=== PATIENT | male | born 1970 | race Caucasian/White ===

== ENCOUNTER → 2025-02-11 08:02 | Outpatient (BNVA) | payer OTHER, SELFPAY | PROVIDERS: Visit Provider Surgery | DX: Z12.11 Encounter for screening for malignant neoplasm of colon (principal) | CPT/HCPCS: 99204 ==

== ENCOUNTER 2025-03-05 09:55 | Day surgery (SDC) | payer OTHER, SELFPAY ==
[2025-03-05 10:13] VITALS: BP 150/97; PULSE 94; RESP 18; TEMP 36.7; O2SAT 99; BMI 19.8
[2025-03-05] MEDS: sodium chloride 0.9% 500 ML 30 ML IV (10:22)
--- NOTE | 2025-03-05 10:47 | ANES.PREANE2 ---
Pre-Anesthetic Assessment Height/Weight: Height 5 ft 10 in Weight 138 lb Temp Pulse Resp BP Pulse Ox O2 Del Method 98.1 F 94 18 150/97 99 Room Air 03/05/25 10:13 03/05/25 10:13 03/05/25 10:13 03/05/25 10:13 03/05/25 10:13 03/05/25 10:13 Preop Diagnosis: Screening colonoscopy Operation Date: 03/05/25 11:55 Proposed Procedures p Colonoscopy [id number] G0105 Z12.11(Not Applicable) - Monster Carpenter MD Was Beta Hilario taken within 24 hours: N/A Was Clonidine taken within 24 hours: N/A Last intake: Intake Last Liquid Date 03/04/25 Last Liquid Time 20:30 Last Solid Date 03/03/25 Last Solid Time 19:30 Social Tobacco and No alcohol Exam alert, oriented x 3, clear to auscultation bilaterally and regular rate & rhythm Airway Submandibular: within normal limits Cervical ROM: within normal limits Mallampati: Class III Comments: Comments: Edentulous Anesthetic Plan ASA status: 2 Anesthesia: MAC Other: No prior issues with anesthesia Completed bowel prep History of COPD, smoker Denies any cardiac issues. Preop BP 150/97 METs greater than 4 Plan for MAC anesthesia Medications/Allergies Home Medications ?Medication ?Instructions ?Recorded ?Confirmed ?Last Taken ?Type albuterol-budesonide 1 - 2 inh inhalation DAILY PRN 02/11/25 03/05/25 03/03/25 History Shortness Of Breath Or Wheezing gabapentin 300 mg PO 3XD PRN Pain 02/11/25 03/05/25 03/03/25 History ibuprofen 800 mg tablet 800 mg PO Q8H 02/11/25 03/05/25 03/03/25 History ondansetron 8 mg disintegrating 8 mg PO Q8H PRN nausea and 02/14/25 03/05/25 03/03/25 Rx tablet vomiting #3 tabs cholecalciferol (vitamin D3) 25 25 mcg PO DAILY 03/05/25 03/05/25 03/03/25 History mcg (1,000 unit) capsule (Vitamin D3) fluticasone 250 mcg-salmeterol 50 1 inh inhalation BID 03/05/25 03/05/25 03/03/25 History mcg/dose blistr powdr for inhalation multivitamin 1 cap PO 1XD 03/05/25 03/05/25 03/03/25 History Allergies Allergy/AdvReac Type Severity Reaction Status Date / Time No Known Allergies Allergy Verified 03/05/25 10:06 Current Medications Generic Name Dose Route Start Last Admin Trade Name Freq PRN Reason Stop Dose Admin Sodium Chloride 500 mls @ 30 mls/hr 03/05/25 10:20 03/05/25 10:22 Sodium Chloride 0.9% IV 03/06/25 02:59 30 mls/hr .[id number] JOAN Administration PFSH Anesthesia Social History Smoking and tobacco/nicotine status: current every day tobacco/nicotine user (1 1/2- 2 PPD) Data Anesthesia Cardiac Studies: No Data to Display
--- NOTE | 2025-03-05 11:16 | W.PM.OPSUD ---
Surgery/Procedure H&P Update DATE OF PROCEDURE: March 05, 2025 DATE H&P PERFORMED: 02/11/25 H&P UPDATE INFORMATION: I have reviewed H&P completed within last 30 days, I have examined patient prior to procedure, No changes to prior documentation, Changes to prior documentation as noted here and Risks and benefits of the procedure reviewed PREOP DIAGNOSIS: Screening colonoscopy PLANNED PROCEDURE: Operation Date: 03/05/25 11:55 Proposed Procedures p Colonoscopy [id number] G0105 Z12.11(Not Applicable) - Monster Carpenter MD
[2025-03-05 11:36] VITALS: BP 92/64; PULSE 90; RESP 14; TEMP 36.7; O2SAT 96
[2025-03-05 11:40] VITALS: BP 93/66; PULSE 88; RESP 16; O2SAT 98
[2025-03-05 11:50] VITALS: BP 122/93; PULSE 83; RESP 18; O2SAT 98
--- NOTE | 2025-03-05 12:16 | ANE.PACU2 ---
Inpatient post-anesthesia follow up: Airway intact: Yes Vital signs: Temperature 98.0 F Pulse Rate 83 Respiratory Rate 18 Blood Pressure 122/93 Pulse Oximetry 98 Oxygen Delivery Me thod Room Air Oxygen Flow Rate Fraction of Inspir ed Oxygen Hydration adequate: Yes Nausea and vomiting: No Pain level: 1 Mental status: Baseline
== END 2025-03-05 12:16 | disposition home or self-care (01) ==
PROVIDERS: PCP Nurse Practitioner; Visit Provider Surgery
PROC: 0DJD8ZZ Inspection of Lower Intestinal Tract, Via Natural or Artificial Opening Endoscopic (ICD-10-PCS; CPT 45378; principal; 2025-03-05 11:55)
DX: Z12.11 Encounter for screening for malignant neoplasm of colon (principal); K52.9 Noninfective gastroenteritis and colitis, unspecified; D12.4 Benign neoplasm of descending colon; J44.9 Chronic obstructive pulmonary disease, unspecified; F17.210 Nicotine dependence, cigarettes, uncomplicated; Z79.899 Other long term (current) drug therapy
CPT/HCPCS: 45380; 45385; 88305; J2704; J3010; J7040

== ENCOUNTER → 2025-03-25 10:31 | Outpatient (BNVA) | payer OTHER, SELFPAY | PROVIDERS: PCP Nurse Practitioner; Visit Provider Surgery | DX: Z09 Encounter for follow-up examination after completed treatment for conditions other than malignant neoplasm (principal) | CPT/HCPCS: 99213 ==

== ENCOUNTER 2025-06-27 10:29 | Inpatient (IN) | payer OTHER, SELFPAY ==
--- OUTSIDE RECORDS SUMMARY | 2024-10-08 10:00 | XMS_ITS | Encounter Summary ---
Author Name [facility] Organization [facility] [place] Address [address] [place] [address] Care Team Providers Care Talent Development Manager Name Role Phone ROME DENSON Primary Care Provider Unavail able Selected Encounter This section includes the information on record at [place] for the Encounter. Date/Time Encounter Type Encounter Description Reason Provider Source Oct 08, 2024 03:00 PM Outpatient Encounter PRIMARY CARE/MEDICINE ICD-10-CM Z00.00 Encntr for general adult medical exam w/o abnormal findings [facility] DENSON Fareed Encounter Template Text not used by [place] Assessments - Encounter Diagnoses This section includes the primary and secondary diagnoses documented for the Encounter. Date/Time Primary/Secondary Diagnosis Diagnosis Name Provider Source Oct 13, 2024 07:46 PM PRIMARY Encntr for general adult medical exam w/o abnormal findings [facility] Oct 13, 2024 07:46 PM SECONDARY Alcohol dependence with alcohol-induced anxiety disorder [facility] DEN[facility] Oct 13, 2024 07:46 PM SECONDARY Chronic obstructive pulmonary disease, unspecified [facility] DENSON [facility] Oct 13, 2024 07:46 PM SECONDARY Oth disrd of bone density and structure, unspecified site HUGO DENSON [facility] Oct 13, 2024 07:46 PM SECONDARY Primary osteoarthritis, unspecified site HUGO DENSON [facility] Plan of Treatment: Future Appointments (+ 6 months) and Future Tests (+/- 45 days) The Plan of Treatment section includes future care activities for the patient from all [place] [facility]. This section includes future appointments and future orders which are active, pending or scheduled. Future Appointments This section includes appointments that were scheduled to occur 6 months from the date of the Encounter, up to a maximum of 20 appointments. The data comes from all [place] treatment facilities. Appointment Date/Time Appointment Type Appointme nt Facility Name Feb 11, 2025 08:00 AM AMBULATORY - MEDICINE [place] [facility] Lab Results: +/- 30 days of the encounter This section includes the Chemistry and Hematology Lab Results on record with [place] for the patient. Radiology Reports and Pathology Reports are provided separately, in subsequent sections. Lab Results This section contains the Chemistry/Hematology Results that were resulted 30 days before or 30 daysafter the date of the Encounter. Date/Time Source Result Type Result - Unit Interpretation Reference Range Specimen Type Comment Oct 08, 2024 03:49 PM [facility] TSH ([place]-PB) SERUM Specimen Type: SERUM No comment entered. Ordering Provider: ROME DENSON Report Released Date/Time: Sep 19, 2024 10:51 AM Reporting Lab: [place] [facility] [address] [place] [address] Performing Lab: [place] [facility] [address] [place] [address] TSH 2.811 u[IU]/mL 0.47-5 Oct 08, 2024 03:49 PM [facility] HGA1C BLOOD Specimen Type: BLOOD No comment entered. Ordering Provider: ROME DENSON Report Released Date/Time: Sep 19, 2024 10:51 AM Reporting Lab: [place] [facility] [address] [place] [address] Performing Lab: [place] [facility] [address] [place] [address] HGA1C 5.5 4.0-6.0 Oct 08, 2024 03:49 PM [facility] CHOLESTEROL PANEL (PB) PLASMA Specimen Type: P LASMA No comment entered. Ordering Provider: ROME DENSON Report Released Date/Time: Sep 19, 2024 10:51 AM Reporting Lab: [place] [facility] [address] [place] [address] Performing Lab: [place] [facility] [address] [place] [address] CHOLESTEROL 185 mg/dL 0-200 TRIGLYCERIDE 49 mg/dL 0-150 CALCULATED LDL 68.2 mg/dL HDL(New) 107.0 mg/dL H >40 HDL % OF TOTAL CHOLESTEROL (PB) 57.8 >25 Oct 08, 2024 03:49 PM [facility] VITAMIN D, 25-HYDROXY SERUM Specimen Type: SE RUM No comment entered. Ordering Provider: ROME DENSON Report Released Date/Time: Sep 19, 2024 10:51 AM Reporting Lab: [place] [facility] [address] [place] [address] Performing Lab: [place] [facility] [address] [place] [address] VITAMIN D, 25-HYDROXY 49.0 ng/mL 30-96 Oct 08, 2024 03:49 PM [facility] COMPREHENSIVE METABOLIC PANEL PLASMA Specimen Type: PLASMA No comment entered. Ordering Provider: ROME DENSON Report Released Date/Time: Sep 19, 2024 10:51 AM Reporting Lab: [place] [facility] [address] [place] [address] Performing Lab: [place] [facility] [address] [place] [address] CREATININE 0.75 mg/dL 0.7-1.3 UREA NITROGEN 6 mg/dL L 9-25 GLUCOSE 96 mg/dL 72-99 SODIUM 130 meq/L L 136-145 POTASSIUM 4.9 meq/L 3.5-5 CHLORIDE 96 meq/L L 98-107 CARBON DIOXIDE 24 meq/L 22-31 CALCIUM 9.3 mg/dL 8.4-10.4 PROTEIN 8.4 g/dL 6-8.6 ALBUMIN 4.3 g/dL 3.4-5 TOTAL BILIRUBIN 0.5 mg/dL 0.2-1.2 ALKALINE PHOSPHATASE 78 U/L 40-150 AST/SGOT 99 U/L H 5-34 ALT/SGPT 72 U/L H 8-40 EGFR (CKD-EPI 2020) 107 Oct 08, 2024 03:49 PM [facility] URINALYSIS ([facility]-PB) URINE Specimen Type: URIN E No comment entered. Ordering Provider: ROME DENSON Report Released Date/Time: Sep 19, 2024 10:51 AM Reporting Lab: [place] [facility] [address] [place] [address] Performing Lab: [place] [facility] [address] [facility] [place] [id number] URINE COLOR Light Yellow Yellow U.BILIRUBIN NEGATIVE mg/dL Negative U.PH 7.0 5.0-8.0 APPEARANCE CLEAR Clear U.NITRITE NEGATIVE mg/dL Negative URN.GLUCOSE NORMAL mg/dL Negative URN.PROTEIN NEGATIVE mg/dL URN.UROBILINOGEN NORMAL mg/dL Normal URN.BLOOD NEGATIVE mg/dL Negative-Trace URN.KETONES NEGATIVE mg/dL Negative-Trac e URN.LEUK.EST. NEGATIVE Negative-Trace URN.SPECIFIC GRAVITY 1.010 1.005-1.029 Oct 08, 2024 03:49 PM [facility] CBC BLOOD Specimen Type: BLOOD No comment entered. Ordering Provider: ROME DENSON Report Released Date/Time: Sep 19, 2024 10:51 AM Reporting Lab: [place] [facility] [address] [facility] [place] [address] Performing Lab: [place] [facility] [address] [facility] [place] [address] WBC 6.4 10*3/uL 3.6-11.2 RBC 4.39 10*6/uL 4.10-5.70 HGB 14.7 g/dL 13.1-16.8 HCT 44.3 38.2-48.4 MCV 100.9 fL H 80.0-100.0 MCH 33.5 pg 27.0-34.0 MCHC 33.2 g/dL 33.0-36.0 PLT 261 10*3/uL 150-400 MPV 10.7 fL 7.5-11.2 RDW 12.1 11.8-15.1 LYMPHOCYTES, AUTO % 37.6 MONOCYTES, AUTO % 12.9 NEUTROPHILS, AUTO % 46.5 EOSINOPHILS, AUTO % 2.2 BASOPHILS, AUTO % 0.5 LYMPHOCYTES, ABSOLUTE 2.41 10*3/uL 0.77- 4.50 MONOCYTES, ABSOLUTE 0.83 10*3/uL H 0.19-0. 8 NEUTROPHILS, ABSOLUTE 2.98 10*3/uL 2.10- 8.00 EOSINOPHILS, ABSOLUTE 0.14 10*3/uL 0.00- 0.60 BASOPHILS, ABSOLUTE 0.03 10*3/uL 0.00-0. 20 IMMATURE GRANS, AUTO % 0.3 IMMATURE GRANS, AUTO ABS 0.02 10*3/uL 0. 00-0.05 Vital Signs: All taken on the encounter date This section contains inpatient and outpatient Vital Signs collected on the date of the Encounter. Date/Time Temperature Pulse Blood Pressure Respiratory Rate SP02 Pain Height Weight Body Mass Index Source Oct 08, 2024 03:18 PM 97.8 84 135/[address] [facility] Social History: Smoking Status (Most current) and Tobacco Use (All prior to encounter date) This section includes the most current, and the historical, smoking and tobacco- related health factors from the [place] facility where the Encounter took place. Current Smoking Status This section includes the most current smoking, or tobacco-related health factor, from the [place] facility where the Encounter took place. Date/Time Current Smoking Status Comment Facil ity Oct 08, 2024 03:00 PM VA-TOBACCO USE EVERY DAY CIGARET [facility] Tobacco Use History This section includes a history of the smoking, or tobacco-related health factors, that were collected on or before the date of the Encounter. The data comes from the [place] facility where the Encounter took place. Date/Time Smoking Status/Tobacco Use Comment F acility Oct 08, 2024 03:00 PM VA-TOBACCO USE EVERY DAY CIGARET [facility] Sep 14, 2022 02:00 PM VA-TOBACCO USE 30 YEARS OR MORE [place] [facility] Sep 14, 2022 02:00 PM VA-TOBACCO USE ADVICE [facility] Sep 14, 2022 02:00 PM VA-TOBACCO USE HAMMER HEATER NO [facility] Sep 14, 2022 02:00 PM VA-TOBACCO USE MED NO [facility] Sep 14, 2022 02:00 PM [facility]TO[facility]ACCO USE [place] [facility] Sep 14, 2022 02:00 PM [facility] Aug 31, 2021 01:00 PM VA-TOBACCO USE 30 YEARS OR MORE [facility] Aug 31, 2021 01:00 PM VA-TOBACCO USE ADVICE [facility] Aug 31, 2021 01:00 PM VA-TOBACCO USE HAMMER [place] NO [facility] Aug 31, 2021 01:00 PM VA-TOBACCO USE MED NO [place] [facility] Aug 31, 2021 01:00 PM VA-TOBACCO USE WI 30 MIN OF WAKE UP [facility] Aug 31, 2021 01:00 PM VA-TOBACCO USER EVERY DAY [facility] Nov 11, 2019 11:24 AM VA-TOBACCO USE 30 YEARS OR MORE [place] Nov 11, 2019 11:24 AM VA-TOBACCO USE ADVICE [place] [place] Nov 11, 2019 11:24 AM VA-TOBACCO USE HAMMER HEATER NO [place] [facility] Nov 11, 2019 11:24 AM VA-TOBACCO USE MED NO [place] [facility] Nov 11, 2019 11:24 AM VA-TOBACCO USE WI 30 MIN OF WAKE UP [facility] Nov 11, 2019 11:24 AM VA-TOBACCO USER EVERY DAY [place] [facility] 2018 09:34 AM VA-TOBACCO USE 5 TO 15 YEARS [place] [place] 2018 09:34 AM VA-TOBACCO USE ADVICE [facility] 2018 09:34 AM VA-TOBACCO USE H[place]MER [place] NO [place] [facility] 2018 09:34 AM VA-TOBACCO USE MED NO [facility] 2018 09:34 AM VA-TOBACCO USE WI 30 MIN OF WAKE UP [facility] [place] [facility] 2018 09:34 AM VA-TOBACCO USER EVERY DAY [place] Jul 19, 2012 12:44 PM CURRENT TOBACCO USER [facility] Jul 19, 2012 12:44 PM TOBACCO OFFERED STOP SMOKING CLI CITLALI [facility] Radiology Reports: +/- 30 days of the encounter Radiology Reports For cases when an order for radiology services may have been completed prior to the date of the Encounter, the report list includes the Radiology Reports that were completed up to 30 days before dateof the Encounter. For cases when an order for radiology services may have been completed after the date of the Encounter, the report list also includes the Radiology Reports that were completed up to30 days after date of the Encounter. The data comes from all [place] treatment facilities. Date/Time Radiology Report Provider Source Oct 08, 2024 03:55 PM CHEST X-RAY, 2 VIE WS: BERLIN BLACKWOOD [id number] -[id number] M Exm Date: OCT 08, 2024@15:55 Req Phys: ROME DENSON Loc: PB-ABBEY PACT [facility] (Req Img Loc: PB-XRAY [place] Service: [place] [address] (Case [id number] COMPLETE) CHEST X-RAY, 2 VIEWS (RAD Detailed) CPT:91017 Reason for Study: COPD Clinical History: did not return for repeat chest xray Report Status: Verified Date Reported: OCT 09, 2024 Date Verified: OCT 09, 2024 [employer] E-Sig: Report: PA and lateral views of the chest with nipple markers reveal densities compatible with normal nipples adjacent to the nipple markers. There is moderate bilateral pulmonary hyperaeration. There is no infiltrate or effusion. Heart size is normal. Impression: No acute process Primary Interpreting Staff: CAMILA LEONARDO, RADIOLOGIST ([employer], no e-sig) /CAMILA Costello [facility] Encounter Notes: All associated encounter notes This section contains the clinical notes associated to the Encounter. Date/Time Encounter Note(s) Provider Source Oct 18, 2024 09:00 AM TELEPHONE ENCOUNTE R NOTE: LOCAL TITLE: TELEPHONE NOTE STANDARD TITLE: TELEPHONE ENCOUNTER NOTE DATE OF NOTE: OCT 18, 2024@09:00 ENTRY DATE: OCT 18, 2024@09:00:57 AUTHOR: AVERY GONCALVES EXP COSIGNER: URGENCY: STATUS: COMPLETED Attempted to contact to review test result letter. NO answer. Left . /eris/ Avery Goncalves RN [place] [facility], [facility] Signed: 10/18/2024 09:01 AVERY GONCALVES [facility] Oct 13, 2024 07:46 PM PHYSICIAN LETTERS: LOCAL TITLE: TEST RESULT GENERAL LETTER STL STANDARD TITLE: PHYSICIAN LETTERS DATE OF NOTE: OCT 13, 2024@19:46 ENTRY DATE: OCT 13, 2024@19:46:49 AUTHOR: ROME DENSON EXP COSIGNER: URGENCY: STATUS: COMPLETED [facility] [address] [place] [address] OCT 13, 2024 BERLIN BLACKWOOD [address] [address] Dear Berlin Blackwood, I would like to update you on your recent test results. LIPID PROFILE - High cholesterol and triglycerides (lipids) are risk factors for heart disease. Your cholesterol should fall between 140 and 200, and your triglycerides levels should be less than or equal to 150. HDL is the good cholesterol and should ideally be greater than 40. LDL is the bad cholesterol and optimal levels should be less than 100 (near optimal is between 100 and 129). TRIGLYCERIDE 49 mg/dL 10/08/2024 15:49 CHOLESTEROL 185 mg/dL 10/08/2024 15:49 HDL(New) 107.0 H mg/dL 10/08/2024 15:49 CALCULATED LDL 68.2 mg/dL 10/08/2024 15:49 HDL % OF TOTAL CHOLESTEROL (PB) 57.8 % 10/08/2024 15:49 No DIRECT LDL EO data found These readings are within normal limits. GLUCOSE - Your blood sugar or glucose level result GLUCOSE GLUCOSE 96 mg/dL 10/08/2024 15:49 These readings are within normal limits. HEMOGLOBIN A1C - Gives us information about your diabetes (sugar or glucose) control over the past 3 months. Your target is to keep your A1C below 6 %. HGA1C 5.5 % 10/08/2024 15:49 These readings are within normal limits. CBC - A complete blood count (CBC) gives important information about the kinds and numbers of cells in the blood, especially red blood cells, white blood cells, and platelets. HGB 14.7 g/dL 10/08/2024 15:49 HEMATOCRIT 44.3 % (10/08/24 15:49) PLT 261 10*3/uL 10/08/2024 15:49 WHITE BLOOD COUNT 6.4 10*3/uL (10/08/24 15:49) These readings are within normal limits. CHEM 7 - This is important information about the current status of your kidneys, liver, and electrolyte and acid/base balance as well as of your blood sugar and blood proteins. SODIUM 130 L mEq/L 10/08/2024 15:49 POTASSIUM 4.9 mEq/L 10/08/2024 15:49 CHLORIDE 96 L mEq/L 10/08/2024 15:49 UREA NITROGEN 6 L mg/dL 10/08/2024 15:49 CREATININE 0.75 mg/dL 10/08/2024 15:49 CALCIUM 9.3 mg/dL 10/08/2024 15:49 CARBON DIOXIDE 24 mEq/L 10/08/2024 15:49 GLUCOSE 96 mg/dL 10/08/2024 15:49 EGFR (CKD-EPI 2020) 107 10/08/2024 15:49 These results are abnormal. Your sodium is slightly decreased. LIVER FUNCTION PANEL - These are tests for liver function: PROTEIN 8.4 g/dL 10/08/2024 15:49 ALBUMIN 4.3 g/dL 10/08/2024 15:49 TOTAL BILIRUBIN 0.5 mg/dL 10/08/2024 15:49 ALKALINE PHOSPHATASE 78 U/L 10/08/2024 15:49 AST/SGOT 99 H U/L 10/08/2024 15:49 ALT/SGPT 72 H U/L 10/08/2024 15:49 These results are abnormal. Your liver enzymes are elevated. This can be from chronic alcohol use showing damage to your liver. It can also be from certain medications. Please avoid any tylenol for pain and decrease or stop alcohol intake. Liver damage can improve if you decrease or stop alcohol intake by a certain point. It is recommended that we do a liver ultrasound at this point to see how your liver is on ultrasound. Please let me know if this is okay. TSH - Thyroid-stimulating hormone (also known as TSH or thyrotropin) is a peptide hormone synthesized and secreted by thyrotrope cells in the anterior pituitary gland, which regulates the endocrine function of the thyroid gland. TSH TSH 2.811 uIU/mL 10/08/2024 15:49 These readings are within normal limits. VITAMIN D - Helps promote the proper utilization of calcium and phosphorus, thereby producing proper bone maintenance. VITAMIN D, 25-HYDROXY 49.0 ng/mL 10/08/2024 15:49 These readings are within normal limits. URINALYSIS - A urinalysis (or UA ) is an array of tests performed on urine and one of the most common methods of medical diagnosis. URINALYSIS URINE COLOR Light Yellow 10/08/2024 15:49 APPEARANCE CLEAR 10/08/2024 15:49 U.PH 7.0 10/08/2024 15:49 U.BILIRUBIN NEGATIVE mg/dL 10/08/2024 15:49 U.NITRITE NEGATIVE mg/dL 10/08/2024 15:49 These readings are within normal limits. Chest xray: Impression: No acute process FUTURE APPOINTMENTS: 10/06/2025 13:00 -ABBEY PACT [facility] Sincerely, Rome Denson, [facility], [facility],ROME HERNANDE[facility] Oct 08, 2024 03:37 PM PRIMARY CARE PROGR ESS NOTE: LOCAL TITLE: PRIMARY CARE CLINIC PROGRESS NOTE PB STANDARD TITLE: PRIMARY CARE PROGRESS NOTE DATE OF NOTE: OCT 08, 2024@15:37 ENTRY DATE: OCT 08, 2024@15:37:34 AUTHOR: ROME DENSON EXP COSIGNER: URGENCY: STATUS: COMPLETED PROVIDER ASSESSMENT DATE & TIME:Sep@15:37 CHIEF COMPLAINT: Annual physical and labs. HISTORY OF PRESENT ILLNESS: is being seen for his annual physical and labs. Aurora needs a follow up colonoscopy scheduled at [facility]. Aurora has chronic low back pain and bilateral hip pain. smokes one and a half packs a day for the last 40 years. Aurora has a left hand scratch from his dog. has a positive audit C. denies any home needs. 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: 1) Allergic rhinitis (SNOMED CT 68488425) 2) Osteoarthritis (SNOMED CT 308932934) 3) Alcohol dependence (SNOMED CT 59116604) 4) Cannabis Abuse (ICD-9-CM 305.20) 5) Tobacco dependence, continuous (SNOMED CT 319915426) 6) Eczema (SNOMED CT 93325819) 7) Depression (SCT 47636288) 8) COPD - Chronic Obstructive Pulmonary Disease (SCT 73897404) 9) Anxiety ([facility] 65888555) 10) Osteopenia 11) Exposure to potentially hazardous substance Active Outpatient Medications (including Supplies): Active Outpatient Medications Status 1) GABAPENTIN 300MG CAP TAKE ONE CAPSULE BY MOUTH THREE ACTIVE TIMES A DAY NEEDED FOR NERVE PAIN 2) IBUPROFEN 800MG TAB TAKE ONE TABLET BY MOUTH EVERY ACTIVE EIGHT(8) HOURS NEEDED FOR PAIN 3) NYSTATIN 646045 UNT/GM CREAM APPLY SPARINGLY TO ACTIVE AFFECTED AREA(S) THREE TIMES A DAY FOR FUNGAL SKIN INFECTION - TOPICAL USE ONLY. Pending Outpatient Medications Status 1) ALBUTEROL 90MCG (CFC-F) 200D ORAL INHL INHALE 2 PUFFS PENDING BY ORAL INHALATION FOUR TIMES A DAY NEEDED SHAKE WELL. RINSE MOUTHPIECE FREQUENTLY TO PREVENT CLOGGING. 2) CHOLECALCIF 25MCG (D3-1,000UNIT) TAB TAKE ONE TABLET PENDING BY MOUTH ONCE A DAY 3) FLUTICAS 250/SALMETEROL 50 INHL DISK 60 INHALE 1 PENDING INHALATION BY ORAL INHALATION TWICE A DAY (OPEN DISKUS; CLICK ONLY ONCE; MAY INHALE TWICE TO COMPLETE DOSE; CLOSE WHEN FINISHED) RINSE MOUTH AND SPIT AFTER EACH USE. 4) FLUTICASONE PROP 50MCG 120D NASAL INHL INSTILL 1 PENDING SPRAY IN NOSTRIL(S) ONCE A DAY (MUST BE USED DIRECTED FOR MINIMUM OF 21 DAYS TO PROVIDE ADEQUATE BENEFITS) 5) MONTELUKAST NA 10MG TAB TAKE ONE TABLET BY MOUTH PENDING EVERY EVENING 8 Total Medications REVIEW OF SYSTEMS: HEENT: No Headache. No blurry vision, vision loss, eye pain, red eyes, or foreign body. No runnynose, congestion, or nose bleed. No hearing loss,ringing in the ears, or vertigo. No sore throat or dental pain. RESPIRATORY: chronic cough. CARDIOVASCULAR: No chest pain, palpitations, tachycardia, PND, or orthopnea. GI: No abdominal pain, nausea, vomiting, diarrhea, constipation, melena, or hematochezia. : No dysuria, hematuria, urinary frequency, weak stream, or post-void dribbling. MUSCULOSKELETAL:chronic joint pain. SKIN: No rash, lesions, or infection PSYCH: No Depression or Anxiety. Not suicidal. PHYSICAL ASSESSMENT: VITAL SIGNS Pulse: 84 (10/08/2024 15:18) Blood Pressure: 135/87 (10/08/2024 15:18) Respiratory Rate: 18 (10/08/2024 15:18) Temperature: 97.8 F [36.6 C] (10/08/2024 15:18) Weight: 133.5 lb [60.55 kg] (10/08/2024 15:18) Height: 71 in [180.3 cm] (09/19/2023 13:06) Pain: 0 (09/19/2023 13:06) HEENT:PERRL, EOMI, Fundi benign, TM's clear, Pharynx not red and without exudate, tonsils normal size. Thin, male. NECK: Supple, no lymhadenopathy, thyroid normal. CARDIAC: Regular rate and rhythm without murmur. No edema. RESPIRATORY: CTA upper lobes, lower lobes diminished bilaterally. GI: Abdomen soft,with ABS, no HSM, no guarding or rebound. MUSCULOSKELETAL:Chronic joint pain with no acute change. FROM. SKIN: Harris without rash or lesions. NEUROLOGICAL: The Aurora is alert and oriented without distress. Affect appropriate. IMPRESSION: Encounter for General Adult Medical Exam COPD-current Alcohol Dependence-current Osteoarthritis-current Osteopenia-current PLAN: Increase water intake. Decrease alcohol intake. Consider smoking cessation. Continue current medications. Will reorder colonoscopy. Labs today. Chest xray today. RTC in one year or sooner if needed. Patient is advised this primary care clinic has open access and he can make a same day appointment anytime a problem/concern arises. Patient further advised he can be seen on a walk-in basis as needed. Patient is provided clinic contact information. Medications reviewed and reconciled. Discussed diet and exercise as relevant to patient conditions. Treatment plan as noted above and the After Visit Summary was reviewed with ; opportunity provided to report concerns and ask question regarding aspects of care or treatment or services; concurrence reached and verbalized understanding. Please refer to addendum or follow up lab letter for plan of care/changes related to lab/test results not available at conclusion of appointment, if any. Discussed with patient that in the event of community imaging / testing being ordered in the future, once the imaging / testing has been completed, please notify PACT of within 1 week by a [facility] PA[facility] member; this is due to intermittent lapses in notification of imaging completion within CPRS. All questions answered; agrees to plan of care. Follow up as listed above, annually, and as needed. Keep all completion at outside facility if not called with results appointments. Medications Reconciled. Time spent 30 minutes. Follow-up Pos Alcohol - AT,M,N,P,PH,PS,R,S,T: Patient's AUDIT-C score was greater than or equal to 5; brief alcohol intervention is indicated. Shared concern that the patient may be drinking at unhealthy levels known to increase his/her risk of alcohol related health problems. Specifically the following were reviewed: High blood pressure, heart disease, liver disease, medication interactions, depression, anxiety, bleeding from the stomach, stroke The patient was advised/informed to drink within safe limits, which are no more than 2 drinks per day on average and no more than 4 drinks on any one day AND no more than 14 drinks per week. Will discuss again at next visit. The patient declines referral for alcohol use assessment or treatment at this time. Plan: rescreen annually. Avg Risk Colorectal Cancer Screen - L,N,P,PH: AVERAGE RISK colorectal cancer screening is due based on information available to this clinical reminder Screening is due now. Colonoscopy consult has been ordered. See orders tab for details. /eris/ CATRACHITA HeathP-CRIS [place] [facility] Signed: 10/13/2024 19:45 ROME DENSON [facility] Oct 08, 2024 03:19 PM PRIMARY CARE NURSI STEVENSON NOTE: LOCAL TITLE: PRIMARY CARE NURSING PROGRESS NOTE (TEXT) NURSING P STANDARD TITLE: PRIMARY CARE NURSING NOTE DATE OF NOTE: OCT 08, 2024@15:19 ENTRY DATE: OCT 08, 2024@15:19:37 AUTHOR: AVERY GONCALVES COSIGNER: URGENCY: STATUS: COMPLETED Established Patient BERLIN BLACKWOOD IS A 53 YEAR OLD MALE BEING SEEN IN CLINIC OCT 08, 2024. == == REASON FOR VISIT: Annual appt Are you receiving care any where other than the [facility]? No HEALTH AND SURGICAL HISTORY: Does patient report using home oxygen? No CURRENT ACTIVE MEDICATIONS FOR REVIEW: Allergies/ADRs (Tool #5) FACILITY ALLERGY/ADR -------- No Remote Allergy/ADR Data available for this patient [facility] No Known Allergies Med. Reconciliation (Tool #1) INCLUDED IN THIS LIST: Alphabetical list of active outpatient prescriptions dispensed from this VA (local) and dispensed from another VA or DoD facility (remote) as well as inpatient orders (local pending and active), local clinic medications, locally documented non-VA medications, and local prescriptions that have or been discontinued in the past 90 days. Non-VA Meds Last Documented On: Data not found NOTE The display of VA prescriptions dispensed from another [place] or DoD facility (remote) is limited to active outpatient prescription entries matched to National Drug File at the originating site and may not include some items such as investigational drugs, compounds, etc. NOT INCLUDED IN THIS LIST: Medications self-entered by the patient into personal health records (i.e. [facility]) are NOT included in this list. Non-VA medications documented outside this [place], remote inpatient orders (regardless of status) and remote clinic medications are NOT included in this list. The patient and provider must always discuss medications the patient is taking, regardless of where the medication was dispensed or obtained. OUTPT CHOLECALCIF 25MCG (D3-1,000UNIT) TAB (Status = ) TAKE ONE TABLET BY MOUTH ONCE A DAY FOR VITAMIN D DEFICIENCY Rx# [id number] Last Released: 07/01/24 Qty/Days Supply: 100 Rx Expiration Date: 10/05/24 Refills Remainin Indication: FOR VITAMIN D DEFICIENCY OUTPT GABAPENTIN 300MG CAP (Status = Active) TAKE ONE CAPSULE BY MOUTH THREE TIMES A DAY NEEDED FOR NERVE PAIN Rx# [id number] Last Released: 08/08/24 Qty/Days Supply: Rx Expiration Date: 08/07/25 Refills Remainin Indication: FOR NERVE PAIN OUTPT IBUPROFEN 800MG TAB (Status = Discontinued) TAKE ONE TABLET BY MOUTH EVERY EIGHT(8) HOURS NEEDED FOR PAIN Rx# [id number] Last Released: 07/01/24 Qty/Days Supply: Rx Expiration Date: 03/14/25 Refills Remainin OUTPT IBUPROFEN 800MG TAB (Status = Active) TAKE ONE TABLET BY MOUTH EVERY EIGHT(8) HOURS NEEDED FOR PAIN Rx# [id number] Last Released: 09/07/24 Qty/Days Supply: Rx Expiration Date: 09/06/25 Refills Remainin OUTPT MONTELUKAST NA 10MG TAB (Status = ) TAKE ONE TABLET BY MOUTH EVERY EVENING Rx# [id number] Last Released: 10/09/23 Qty/Days Supply: 90 Rx Expiration Date: 10/04/24 Refills Remainin OUTPT MULTIVITAMIN CAP/TAB (Status = ) TAKE 1 TABLET BY MOUTH ONCE A DAY FOR SUPPLEMENTATION. Rx# [id number] Last Released: 07/01/24 Qty/Days Supply: 100 Rx Expiration Date: 10/04/24 Refills Remainin OUTPT NYSTATIN [id number] UNT/GM CREAM (Status = Active) APPLY SPARINGLY TO AFFECTED AREA(S) THREE TIMES A DAY FOR FUNGAL SKIN INFECTION - TOPICAL USE ONLY. Rx# [id number] Last Released: 03/18/24 Qty/Days Supply: Rx Expiration Date: 03/14/25 Refills Remainin Indication: FOR FUNGAL SKIN INFECTION SUPPLIES PHARMACY TERMS AND POSSIBLE PATIENT ACTIONS INPT = [place] inpatient order IV = MA intravenous medication OUTPT = MA outpatient prescription PHARMACY POSSIBLE PATIENT TERMS EXPLANATION ACTIONS -------- ----- ACTIVE A prescription that can be If you have refills, filled at the local [place] pharmacy. you may request a refill of this prescription from your [place] pharmacy. CLINIC A medication you received during If you have questions a visit to a [place] clinic or about this medication emergency department. contact your [place] healthcare team. DISCONTINUED A prescription your provider has Contact your [place] stopped. It is no longer healthcare team if you available to be sent to you or need more of this picked up at the [place] pharmacy medication. window. A prescription which is too old Contact your VA to fill. This does not refer to healthcare team if you the expiration date of the need more of this medication in the container. medication. NON-VA A medication that came from If this medication someplace other than a VA information is pharmacy. This may be a incorrect or out of prescription from either the VA date, please tell your or non VA providers that was VA healthcare team. filled outside the VA. Or, it may be an tlpe-ojh-gaqswjp (OTC), herbal, dietary supplements or sample medication. ON HOLD An active prescription that will Contact your VA not be filled until pharmacy pharmacy when you need resolves the issue. more of this medication. PARKED An active prescription that will Contact your VA not be filled until the patient pharmacy when you need requests it. this medication. PENDING This prescription order has been If you have been sent to the pharmacy for review instructed to start and is not ready yet. this medication now, contact your VA pharmacy. SUSPENDED An active prescription that is Contact your VA not scheduled to be filled yet. pharmacy if you need You should receive it before this medication now. you run out. Patient reports taking medications as ordered. IS PATIENT TAKING ANY OVER THE COUNTER MEDICATIONS, SUCH VITAMINS OR HERBAL SUPPLEMENTS, INCLUDING ANY MEDICATIONS PRESCRIBED BY ANOTHER PHYSICIAN? No ALLERGIES/ADVERSE REACTIONS: Patient has answered NKA Does patient have any new allergies to report since last visit? NO VITALS: TEMPERATURE: 97.8 F [36.6 C] (10/08/2024 15:18) BP: 135/87 (10/08/2024 15:18) RESP: 18 (10/08/2024 15:18) PULSE: 84 (10/08/2024 15:18) HT: 71 in [180.3 cm] (09/19/2023 13:06) WT: 133.5 lb [60.55 kg] (10/08/2024 15:18) BMI: 18.7 PAIN ASSESSMENT: (Most Recent Pain Score in Vitals Package: 0 (09/19/2023 13:06) ) The patient indicated that they and their close contacts have not traveled outside of the [place] in the past 21 days. The patient reports the following symptoms: No symptoms present The patient is not immunocompromised. The patient does not report having a history of Multi Drug Resistant Organism (MDRO) within the last five years. The patient does not report having been exposed to measles, chickenpox, or zoster in last 30 days. Patient reports no pain at this visit. Pain Score = 0. STRESS: Thank you for your service. Now let us serve you. At the [facility], we strive to provide you with exceptional health care that improves your health and well-being. Are you feeling sad, empty, or depressed? No Do you need to talk about things in your life that worry you or cause you stress? No Do you need to talk about personal problems, family problems, alcohol use, drug use, or mental or emotional illness? No SUICIDE SCREENING: The patient was asked, Over the past two weeks, how often have you been bothered by thoughts that you would be better off or of hurting yourself in some way? Not At All SPIRITUAL ASSESSMENT: Are there mandaen practices or spiritual concerns you want the bushel worker, your physician, and other health care team members to immediately know about? No Patient advised to call the clinic for any concerns, questions, or symptoms. Patient and/or caregiver verbalized understanding of plan of care. Suicide Screen - V: C-SSRS Screening King Suicide Severity Rating Scale (C-SSRS) screener 1. Over the past month, have you wished you were or wished you could go to sleep and not wake up? No 2. Over the past month, have you had any actual thoughts of killing yourself? No 3. Over the past month, have you been thinking about how you might do this? Response not required due to responses to other questions. 4. Over the past month, have you had these thoughts and had some intention of acting on them? Response not required due to responses to other questions. 5. Over the past month, have you started to work out or worked out the details of how to kill yourself? Response not required due to responses to other questions. 6. If yes, at any time in the past month did you intend to carry out this plan? Response not required due to responses to other questions. 7. In your lifetime, have you ever done anything, started to do anything, or prepared to do anything to end your life (for example, collected pills, obtained a gun, gave away valuables, went to the roof but didn't jump)? No 8. If YES, was this within the past 3 months? Response not required due to responses to other questions. Tobacco Use Screening - U,L,N,S,PS,M,DE,PH,P: The patient smokes cigarettes every day. The patient states they have smoked for the following number of years: # of years: 40 Average number of packs/day over the entire time patient smoked: Packs/day: 1.5 The patient has never used other types of tobacco. Alcohol Use Screen (AUDIT-C) - V: Alcohol Screen: SCREEN FOR ALCOHOL (AUDIT-C) An alcohol screening test (AUDIT-C) was positive (score=8). 1. How often did you have a drink containing alcohol in the past year? Consider a drink to be a 12 ounce can or bottle of regular beer, 8 ounces of malt liquor, a 5 ounce glass of table wine, or a 1.5 ounce shot of liquor (like scotch, gin, or vodka). Four or more times a week 2. How many drinks containing alcohol did you have on a typical day when you were drinking in the past year? Five or six drinks 3. How often did you have six or more drinks on one occasion in the past year? Monthly Homelessness/Food Insecurity Screen - DI,L,N,P,PH,PS,S,U: In the past 2 months, have you been living in stable housing that you own, rent, or stay in as part of a household? Yes - Living in stable housing. Are you worried or concerned that in the next 2 months you may NOT have stable housing that you own, rent, or stay in as part of a household? No - Not worried about housing near future The reports the following: Within the past 12 months, you worried whether your food would run out before you got money to buy more. Never true Within the past 12 months, the food you bought just didn't last and you didn't have money to get more. Never true Advanced Directive Screen/Cup Setter Lockstitch: ADVANCE DIRECTIVE SCREENING: I asked if the patient has an advance directive, and determined that: Patient does not have an Advance Directive. Patient was given form to update and return when completed. ADVANCE DIRECTIVE NOTIFICATION I provided the patient with written notification about advance directives. Level of understanding: Good Influenza Immunization - L,N,P,PH,U: Deferral / Refusal The patient declines to receive the recommended dose of seasonal influenza vaccine. Immunization: INFLUENZA, UNSPECIFIED FORMULATION Refusal Reason: PATIENT DECISION Patient refuses all immunization(s) in the FLU group Date Documented: 10/08/24 15:23 Depression Screening - V: Perform PHQ-2 A PHQ-2 screen was performed. The score was 0 which is a negative screen for depression. Over the past two weeks, how often have you been bothered by the following problems? 1. Little interest or pleasure in doing things Not at all 2. Feeling down, depressed, or hopeless Not at all Weight Control/Nutrition Counseling: * The patient received the following counseling at this encounter: Patient was encouraged to restrict fat, especially saturated fats, in a normal diet. Benefit of a diet high in fiber was discussed. Patient was advised to include 5 or more servings of fruit and vegetables and six or more servings of grains as a well balanced diet. Herpes Zoster (Shingles) Vaccine - L,N,P,PH,U: The patient declines to receive the recommended dose of zoster (shingles) vaccine. Immunization: ZOSTER RECOMBINANT Refusal Reason: PATIENT DECISION Patient refuses all immunization(s) in the ZOSTER group Date Documented: 10/08/24 15:25 Pneumococcal Conjugate Vaccine (PCV15/PCV20) - L,N,P,PH,U: Refuses PCV vaccine Immunization: PNEUMOCOCCAL CONJUGATE, UNSPECIFIED FORMULATION Refusal Reason: PATIENT DECISION Patient refuses all immunization(s) in the PneumoPCV group Date Documented: 10/08/24 15:25 Sexual Orientation - CP,L,N,P,PH,PS,S,U: The patient thinks of their sexual orientation as: Straight or Heterosexual COVID-19 Immunization - L,N,P,PH,U: Refused Moderna Monovalent COVID-19 vaccine Immunization: COVID-19 (MODERNA), MRNA, LNP-S, PF, 50 MCG/0.5 ML (AGES 12+ YEARS) Refusal Reason: PATIENT DECISION Patient refuses all immunization(s) in the COVID-19 group Date Documented: 10/08/24 15:26 /eris/ Avery Goncalves RN [facility], [facility] Signed: 10/08/2024 15:31 AVERY GONCALVES [facility]
--- OUTSIDE RECORDS SUMMARY | 2025-06-26 06:51 | XMS_ITS | Encounter Summary ---
Author Name [facility] [place] [facility] Address [address] [place] [address] Care Team Providers Care Data Programmer Name Role Phone ROME DENSON Primary Care Provider Unavail able Selected Encounter This section includes the information on record at [place] for the Encounter. Date/Time Encounter Type Encounter Description Reason Pro vider Source Jun 26, 2025 11:51 AM Outpatient Encounter TELEPHONE TRIAGE IHE Encounter Template Text not used by [place] Plan of Treatment: Future Appointments (+ 6 months) and Future Tests (+/- 45 days) The Plan of Treatment section includes future care activities for the patient from all [place] treatmentfacilities. This section includes future appointments and future orders which are active, pending or scheduled. Future Appointments This section includes appointments that were scheduled to occur 6 months from the date of the Encounter, up to a maximum of 20 appointments. The data comes from all [place] treatment facilities. Appointment Date/Time Appointment Type Appointme nt Facility Name Jun 27, 2025 09:15 AM AMBULATORY - MEDICINE [facility] Jun 27, 2025 10:00 AM AMBULATORY - MEDICINE [facility] Oct 06, 2025 01:00 PM AMBULATORY - MEDICINE [facility] Active, Pending, and Scheduled Orders This section includes a listing of several types of active, pending, and scheduled orders, including clinic medications orders, diagnostic test orders, procedure orders and consult orders; where the start date of the order is 45 days before the date of the Encounter or 45 days after the date of theEncounter. The data comes from all [place] treatment facilities. Test Date/Time Test Type Test Details Facility Name Jun 26, 2025 12:00 AM Imaging - Ultrasou nd Order US BLOOD FLOW ABD/RENAL DOPPLER (COMPLETE) IRON CALABRESE [facility] Jun 26, 2025 02:46 PM Procedure Order CP EKG PB CP MUSE EKG POP [id number] Proc Car [facility] Jun 27, 2025 09:20 AM Laboratory - Chemistry Order TSH ([place]-PB) GOLD/RED SST SERUM SP [facility] Jun 27, 2025 09:20 AM Laboratory - Chemistry Order FREE T4 ([place]-PB) GOLD/RED SST SERUM SP [facility] Jun 27, 2025 09:20 AM Laboratory - Chemistry Order IRON/TIBC PROFILE GOLD/RED SST SERUM SP [facility] Jun 27, 2025 09:20 AM Laboratory - Chemistry Order B12 GOLD/RED SST SERUM SP [facility] Jun 27, 2025 09:20 AM Laboratory - Chemistry Order BRAIN NATRIURETIC PEPTIDE LAVENDER BLOOD PLASMA SP [facility] Jun 27, 2025 09:20 AM Laboratory - Chemistry Order CBC BLOOD SP [facility] Jun 27, 2025 09:20 AM Laboratory - Chemistry Order COMPREHENSIVE METABOLIC PANEL GREEN LI/HEP BLD/PLAS PLASMA [facility] Social History: Smoking Status (Most current) and Tobacco Use (All prior to encounter date) This section includes the most current, and the historical, smoking and tobacco- related health factors from the [place] facility where the Encounter took place. Current Smoking Status This section includes the most current smoking, or tobacco-related health factor, from the [place] facility where the Encounter took place. Date/Time Current Smoking Status Comment Mera ity Oct 08, 2009 08:[address] OP SMOKING CLINIC [facility] Tobacco Use History This section includes a history of the smoking, or tobacco-related health factors, that were collected on or before the date of the Encounter. The data comes from the [place] facility where the Encounter took place. Date/Time Smoking Status/Tobacco Use Comment F aczuleika Oct 08, 2009 08:[address] OP SMOKING CLINIC [facility] Encounter Notes: All associated encounter notes This section contains the clinical notes associated to the Encounter. Date/Time Encounter Note(s) Provider Source Jun 26, 2025 11:51 AM PHARMACY NOTE: LOCAL TITLE: PHARMACY CONTACT CENTER NOTE STANDARD TITLE: PHARMACY NOTE DATE OF NOTE: JUN 26, 2025@11:51 ENTRY DATE: JUN 26, 2025@11:51:35 AUTHOR: JOSE GUTHRIE EXP COSIGNER: URGENCY: STATUS: COMPLETED GENERAL NOTE: FYI... TRANSFERRED [facility] TO [facility] FOR ACTIVE SYMPTOMS Patient called [facility] to refill a couple of medications and then patient asks who does he talk to for severe legs and feet swelling because his legs and feet are swollen pretty good to the point that they feel uncomfortable . Received confirmation from patient to transfer him to [facility]. Thank you. ALERTING [facility] AND TEAM FOR AWARENESS /eris/ MARIN JUNE 15 [facility] LICENSED NUCLEAR OPERATOR Signed: 06/26/2025 11:55 Receipt Acknowledged By: 06/27/2025 10:12 /es/ Samia Carter APRN, COAT ROOM ATTENDANT-C, [facility] Gilmar Hernández [facility] for ROME DENSON 06/26/2025 13:53 /es/ Beatriz Greene RN [facility], [facility] 06/26/2025 15:35 /es/ JOSE URIAS LPN [facility]
--- OUTSIDE RECORDS SUMMARY | 2025-06-26 07:01 | XMS_ITS | Encounter Summary ---
Author Name [facility] [place] [facility] [place] [facility] [place] Address [address] [place] [address] Care Team Providers Care Elevator Repairer Apprentice Name Role Phone ROME DENSON Primary Care Provider Unavail able Selected Encounter This section includes the information on record at [place] for the Encounter. Date/Time Encounter Type Encounter Description Reason Pro vider Source Jun 26, 2025 12:01 PM Outpatient Encounter TELEPHONE TRIAGE IHE Encounter Template Text not used by [place] Plan of Treatment: Future Appointments (+ 6 months) and Future Tests (+/- 45 days) The Plan of Treatment section includes future care activities for the patient from all [place] treatmentfacilities. This section includes future appointments and future orders which are active, pending or scheduled. Future Appointments This section includes appointments that were scheduled to occur 6 months from the date of the Encounter, up to a maximum of 20 appointments. The data comes from all [place] treatment facilities. Appointment Date/Time Appointment Type Appointme nt Facility Name Jun 27, 2025 09:15 AM AMBULATORY - MEDICINE [facility] Jun 27, 2025 10:00 AM AMBULATORY - MEDICINE [facility] Oct 06, 2025 01:00 PM AMBULATORY - MEDICINE [facility] Active, Pending, and Scheduled Orders This section includes a listing of several types of active, pending, and scheduled orders, including clinic medications orders, diagnostic test orders, procedure orders and consult orders; where the start date of the order is 45 days before the date of the Encounter or 45 days after the date of theEncounter. The data comes from all [place] treatment facilities. Test Date/Time Test Type Test Details Facility Name Jun 26, 2025 12:00 AM Imaging - Ultrasou nd Order US BLOOD FLOW ABD/RENAL DOPPLER (COMPLETE) [facility] Jun 26, 2025 02:46 PM Procedure Order CP EKG PB CP MUSE EKG POP 657A4 Proc Dairy Cattle Farm Manager's Choice [facility] Jun 27, 2025 09:20 AM Laboratory - Chemistry Order TSH (MA-PB) GOLD/RED SST SERUM SP [facility] Jun 27, 2025 09:20 AM Laboratory - Chemistry Order FREE T4 (MA-PB) GOLD/RED SST SERUM SP [facility] Jun 27, 2025 09:20 AM Laboratory - Chemistry Order IRON/TIBC PROFILE GOLD/RED SST [facility] Jun 27, 2025 09:20 AM Laboratory - Chemistry Order B12 GOLD/RED SST SERUM SP [facility] Jun 27, 2025 09:20 AM Laboratory - Chemistry Order CBC BLOOD SP [facility]NOTE 2] Jun 27, 2025 09:20 AM Laboratory - Chemistry Order BRAIN NATRIURETIC PEPTIDE LAVENDER BLOOD PLASMA SP [facility] [place]NOTE 2] Jun 27, 2025 09:20 AM Laboratory - Chemistry Order COMPREHENSIVE METABOLIC PANEL GREEN LI/HEP BLD/PLAS PLASMA [facility] Social History: Smoking Status (Most current) and Tobacco Use (All prior to encounter date) This section includes the most current, and the historical, smoking and tobacco- related health factors from the [place] facility where the Encounter took place. Current Smoking Status This section includes the most current smoking, or tobacco-related health factor, from the [place] facility where the Encounter took place. Date/Time Current Smoking Status Comment Mera ity Oct 08, 2009 08:[address] OP SMOKING CLINIC [facility]NOTE 2] Tobacco Use History This section includes a history of the smoking, or tobacco-related health factors, that were collected on or before the date of the Encounter. The data comes from the [place] facility where the Encounter took place. Date/Time Smoking Status/Tobacco Use Comment F aczuleika Oct 08, 2009 08:[address] [facility] SMOKING CL[facility]IC [facility] [place]NOTE 2] Encounter Notes: All associated encounter notes This section contains the clinical notes associated to the Encounter. Date/Time Encounter Note(s) Provider Source Jun 26, 2025 12:01 PM RN PROGRESS NOTE: LOCAL TITLE: [facility]: CLINICAL TRIAGE STANDARD TITLE: RN PROGRESS NOTE DATE OF NOTE: JUN 26, 2025@12:01:49 ENTRY DATE: JUN 26, 2025@12:01:49 AUTHOR: JOSE WALTON EXP COSIGNER: URGENCY: STATUS: COMPLETED Caller Verification Caller/Recipient Relation to Patient: Self Caller Name: BERLIN WIGGINS Emergency Contact: BENTLEY HOLLEYGHORN Triage Summary Conducted triage/discussed symptoms Pain Score: 0 (No Pain) Utilized the Triage Tool: Yes Chief Complaint: Leg Swelling and Edema Nurse's Recommendation / WHEN: Within 3 Days Nurse's Recommendation / WHERE: Virtual Video Visit Patient Disposition Patient/Caregiver agrees to plan of care: Yes Patient WHERE: Virtual Video Visit Patient WHEN: Within 3 days Nursing Plan and Disposition Referred for [facility] Virtual Clinic Visit Transferred patient to [facility] Other course(s) of action Generated msg to PACT/Provider Provided guidance for worsening symptoms: *Caller/Patient* advised to call facilities [place] Clinical Contact Center or seek immediate medical attention for new or worsening symptoms Nurse Summary Nurse Summary: calls with 1 week of bilateral leg and ankle swelling to mid calf. states he has exertional shortness of breath but states it is no worse than normal. States he has COPD and he is in his normal state of breathing with no changes. States some redness to tops of feet. Denies any pain at this time in feet. Denies fever. Transferred to [facility] to schedule appointment in the next 3 days. Clinical Contact Center Codes Clinic/Location: 5 PB PHONE [facility] RN Decision Support System Output: Triage Complete Triage Date: 06/26/2025, 11:56 AM Triage Note: Decision Support Tool Used: ClearTriage Protocol Used: Leg Swelling and Edema Protocol-Based Disposition: See Provider within 3 Days Video visit offered and caller accepted Positive Triage Question: * [1] MILD swelling of both ankles (i.e., pedal edema) AND [2] new-onset or getting worse Care Advice Discussed: * Reasons To Call Back - Swelling becomes worse - Swelling becomes red or painful to the touch - Calf pain occurs and becomes constant - You become worse Negative Triage Questions: * SEVERE difficulty breathing (e.g., struggling for each breath, speaks in single words) * Looks like a broken bone or dislocated joint (e.g., crooked or deformed) * Sounds like a life-threatening emergency to the triager * Difficulty breathing at rest * Entire foot is cool or blue in comparison to other side * [1] Can't walk or can barely walk AND [2] new-onset * [1] Difficulty breathing with exertion (e.g., walking) and [2] NEW or getting WORSE * [1] Red area or streak AND [2] fever * [1] Swelling is painful to touch AND [2] fever * [1] Cast on leg or ankle AND [2] now increased pain * Patient sounds very sick or weak to the triager * SEVERE leg swelling (e.g., swelling extends above knee, entire leg is swollen, weeping fluid) * [1] Red area or streak [2] large (> 2 inches or 5 cm) * [1] Thigh or calf pain AND [2] only 1 side AND [3] present > 1 hour * [1] Thigh, calf, or ankle swelling AND [2] only 1 side * [1] Thigh, calf, or ankle swelling AND [2] bilateral AND [3] 1 side is more swollen * [1] MODERATE leg swelling (e.g., swelling extends up to knees) AND [2] new-onset or getting worse * Swelling of face, arm or hands (Exception: Slight puffiness of fingers occurring during hot weather.) * Looks like a boil, infected sore, deep ulcer or other infected rash (spreading redness, pus) IMPORTANT: This note was created by [facility] Clinical Contact Center staff. Please do not alert the staff member by adding them as a signer for future communications. Alerts are not monitored by this user. /eris/ JOSE Meier [facility] Care Nurse Law Reporter Signed: 06/26/2025 12:01 Receipt Acknowledged By: 06/27/2025 09:03 /es/ Samia Carter APRN, EFRAÍNC, [facility] Gilmar Hernández [facility] for [place] JANIYA 06/26/2025 13:54 /es/ Beatriz Greene RN [facility], JJP [facility] JOSE WALTON [facility]
--- OUTSIDE RECORDS SUMMARY | 2025-06-26 07:14 | XMS_ITS | Encounter Summary ---
Author Name [facility] [place] Organization [facility] [place] Address [address] [place] [address] Care Team Providers Care Monitoring And Evaluation Advisor Name Role Phone ROME DENSON Primary Care Provider Unavail able Selected Encounter This section includes the information on record at [place] for the Encounter. Date/Time Encounter Type Encounter Description Reason Pro vider Source Jun 26, 2025 12:14 PM Outpatient Encounter ADMIN PAT ACTIVTIES (MASNONCT) IHE Encounter Template Text not used by [place] Plan of Treatment: Future Appointments (+ 6 months) and Future Tests (+/- 45 days) The Plan of Treatment section includes future care activities for the patient from all [place] treatmentfacilities. This section includes future appointments and future orders which are active, pending or scheduled. Future Appointments This section includes appointments that were scheduled to occur 6 months from the date of the Encounter, up to a maximum of 20 appointments. The data comes from all [place] treatment facilities. Appointment Date/Time Appointment Type Appointme nt Facility Name Jun 27, 2025 09:15 AM AMBULATORY - MEDICINE [facility] Jun 27, 2025 10:00 AM AMBULATORY - MEDICINE [facility] Oct 06, 2025 01:00 PM AMBULATORY - MEDICINE [facility] Active, Pending, and Scheduled Orders This section includes a listing of several types of active, pending, and scheduled orders, including clinic medications orders, diagnostic test orders, procedure orders and consult orders; where the start date of the order is 45 days before the date of the Encounter or 45 days after the date of theEncounter. The data comes from all [place] treatment facilities. Test Date/Time Test Type Test Details Facility Name Jun 26, 2025 12:00 AM Imaging - Ultrasou nd Order US BLOOD FLOW ABD/RENAL DOPPLER (COMPLETE) [facility] Jun 26, 2025 02:46 PM Procedure Order CP EKG PB CP MUSE EKG POP 657A4 Proc Coin Rolling Machine Operator's Choice [facility] Jun 27, 2025 09:20 AM Laboratory - Chemistry Order TSH (MA-PB) GOLD/RED SST SERUM SP [facility] Jun 27, 2025 09:20 AM Laboratory - Chemistry Order FREE T4 (MA-PB) GOLD/RED SST SERUM [facility] Jun 27, 2025 09:20 AM Laboratory - Chemistry Order IRON/TIBC PROFILE GOLD/RED SST SERUM [facility] Jun 27, 2025 09:20 AM Laboratory - Chemistry Order B12 GOLD/RED SST SERUM [facility] Jun 27, 2025 09:20 AM Laboratory - Chemistry Order CBC BLOOD [facility] Jun 27, 2025 09:20 AM Laboratory - Chemistry Order BRAIN NATRIURETIC PEPTIDE LAVENDER BLOOD PLASMA [facility] Jun 27, 2025 09:20 AM Laboratory - Chemistry Order COMPREHENSIVE METABOLIC PANEL GREEN LI/HEP BLD/PLAS PLASMA [facility] Social History: Smoking Status (Most current) and Tobacco Use (All prior to encounter date) This section includes the most current, and the historical, smoking and tobacco- related health factors from the [place] facility where the Encounter took place. Current Smoking Status This section includes the most current smoking, or tobacco-related health factor, from the [place] facility where the Encounter took place. Date/Time Current Smoking Status Comment Facil ity Oct 08, 2009 08:[address] OP SMOKING CLINIC [facility] Tobacco Use History This section includes a history of the smoking, or tobacco-related health factors, that were collected on or before the date of the Encounter. The data comes from the [place] facility where the Encounter took place. Date/Time Smoking Status/Tobacco Use Comment F acility Oct 08, 2009 08:[address] OP SMOKING CLINIC [facility] Encounter Notes: All associated encounter notes This section contains the clinical notes associated to the Encounter. Date/Time Encounter Note(s) Provider Source Jun 26, 2025 12:14 PM ADMINISTRATIVE NOT E: LOCAL TITLE: CCC: SCHEDULING ADMINISTRATION STANDARD TITLE: ADMINISTRATIVE NOTE DATE OF NOTE: JUN 26, 2025@12:14:48 ENTRY DATE: JUN 26, 2025@12:14:48 AUTHOR: FELIX WARREN EXP COSIGNER: URGENCY: STATUS: COMPLETED Caller Verification Emergency Contact: BENTLEY WIGGINS Emergency Contact Caller/Recipient Relation to Patient: Self Caller Name: BERLIN WIGGINS Administrative Administrative Note Reason: Other Administrative Note Comments: Patient agreed to appointment with: V15 PB PHONE CCC MUSIC MIXER 06/26/2025 230 pm, for bilateral feet and ankle swelling, disposition 3 days IMPORTANT: This note was created by [facility] Clinical Contact Center staff. Please do not alert the staff member by adding them as a signer for future communications. Alerts are not monitored by this user. /eris/ FELIX JOSEPHMDSTEVENSON [facility] Signed: 06/26/2025 12:14 Receipt Acknowledged By: 06/27/2025 10:07 /es/ DARIEN BOO MSA Central Supply Tech 06/26/2025 13:53 /es/ Beatriz Greene RN [facility], [facility] 06/26/2025 15:48 /es/ FELIX MANCIA [facility]
--- OUTSIDE RECORDS SUMMARY | 2025-06-26 09:30 | XMS_ITS | Encounter Summary ---
Author Name [facility] [place] Organization [facility] [place] Address [address] [place] [address] Care Team Providers Care Hair Worker Name Role Phone ROME DENSON Primary Care Provider Unavail able Selected Encounter This section includes the information on record at [place] for the Encounter. Date/Time Encounter Type Encounter Description Reason Provider Source Jun 26, 2025 02:30 PM SYNCH AUDIO-ONLY EST LOW 20 TELEPHONE TRIAGE ICD-10-CM J44.9 Chronic obstructive pulmonary disease, unspecified WISAM STEVEN L IHE Encounter Template Text not used by [place] Assessments - Encounter Diagnoses This section includes the primary and secondary diagnoses documented for the Encounter. Date/Time Primary/Secondary Diagnosis Diagnosis Name Provider Source Jun 26, 2025 02:30 PM PRIMARY Chronic obstructive pulmonary disease, unspecified GRAVES,WISAM L POPLAR BLUFF [facility] Jun 26, 2025 02:30 PM SECONDARY Abnormal results of liver function studies GRAVES,WISAM L POPLAR BLUFF [facility] Jun 26, 2025 02:30 PM SECONDARY Edema, unspecified GRAVES,WISAM L POPLAR BLUFF [facility] Plan of Treatment: Future Appointments (+ 6 months) and Future Tests (+/- 45 days) The Plan of Treatment section includes future care activities for the patient from all [place] treatmentfacilities. This section includes future appointments and future orders which are active, pending or scheduled. Future Appointments This section includes appointments that were scheduled to occur 6 months from the date of the Encounter, up to a maximum of 20 appointments. The data comes from all [facility] treatment facilities. Appointment Date/Time Appointment Type Appointme nt Facility Name Jun 27, 2025 09:15 AM AMBULATORY - MEDICINE [facility] Jun 27, 2025 10:00 AM AMBULATORY - MEDICINE [facility] Oct 06, 2025 01:00 PM AMBULATORY - MEDICINE [facility] Active, Pending, and Scheduled Orders This section includes a listing of several types of active, pending, and scheduled orders, including clinic medications orders, diagnostic test orders, procedure orders and consult orders; where the start date of the order is 45 days before the date of the Encounter or 45 days after the date of theEncounter. The data comes from all [facility]. Test Date/Time Test Type Test Details Facility Name Jun 26, 2025 12:00 AM Imaging - Ultrasou nd Order US BLOOD FLOW ABD/RENAL DOPPLER (COMPLETE) [facility] Jun 26, 2025 02:46 PM Procedure Order CP EKG PB CP MUSE EKG POP 657A4 Proc Machine Quilt Stuffer's Choice [facility] Jun 27, 2025 09:20 AM Laboratory - Chemistry Order TSH (MA-PB) GOLD/RED SST SERUM SP [facility] Jun 27, 2025 09:20 AM Laboratory - Chemistry Order FREE T4 (MA-PB) GOLD/RED SST SERUM SP [facility] Jun 27, 2025 09:20 AM Laboratory - Chemistry Order IRON/TIBC PROFILE GOLD/RED SST SERUM [facility] Jun 27, 2025 09:20 AM Laboratory - Chemistry Order B12 GOLD/RED SST SERUM [facility] Jun 27, 2025 09:20 AM Laboratory - Chemistry Order CBC BLOOD SP [facility] Jun 27, 2025 09:20 AM Laboratory - Chemistry Order BRAIN NATRIURETIC PEPTIDE LAVENDER BLOOD PLASMA SP [facility] Jun 27, 2025 09:20 AM Laboratory - Chemistry Order COMPREHENSIVE METABOLIC PANEL GREEN LI/HEP BLD/PLAS PLASMA [facility] Social History: Smoking Status (Most current) and Tobacco Use (All prior to encounter date) This section includes the most current, and the historical, smoking and tobacco- related health factors from the [place] facility where the Encounter took place. Current Smoking Status This section includes the most current smoking, or tobacco-related health factor, from the [place] facility where the Encounter took place. Date/Time Current Smoking Status Comment Mera reed Oct 08, 2009 08:[address] [facility] Tobacco Use History This section includes a history of the smoking, or tobacco-related health factors, that were collected on or before the date of the Encounter. The data comes from the [place] facility where the Encounter took place. Date/Time Smoking Status/Tobacco Use Comment Cosme mckeon Oct 08, 2009 08:[address] [facility] Encounter Notes: All associated encounter notes This section contains the clinical notes associated to the Encounter. Date/Time Encounter Note(s) Provider Source Jun 26, 2025 02:37 PM URGENT CARE NOTE: LOCAL TITLE: 5 [facility] URGENT CARE VISIT STANDARD TITLE: URGENT CARE NOTE DATE OF NOTE: JUN 26, 2025@14:37 ENTRY DATE: JUN 26, 2025@14:38 AUTHOR: WISAM STEVEN EXP COSIGNER: URGENCY: STATUS: COMPLETED 5 [facility] URGENT CARE VISIT Has ADDENDA PRIMARY CARE TEMPLATE Patient is a 54 year old (Oct) WHITE MALE. Patient's identity was verified with at least 2 personal identifiers. *Appointment type: Type of Visit: Phone Visit: Visit conducted by telephone. Location/emergency number confirmed. Emergency contact information was obtained as follows: Confirmed [place]'s Non-VA location for this appointment: Patient's current address [address] [place] [address] Patient's Primary NOK: UNK, Relation: UNRELATED FRIEND/ <street address not available> Phone: Chief Complaint: swelling to legs and tops of feet reviewed nurses notes History of Present Illness: swelling to legs and tops of feet over last week had a little sunburn on using cortisone and has red splotches to legs not warm some soa but has copd has not been doing too much PMH/Active Problem List 1) Allergic rhinitis (SNOMED CT 39806900) 2) Osteoarthritis (SNOMED CT 792451472) 3) Alcohol dependence (SNOMED CT 16949516) 4) Cannabis Abuse (ICD-9-CM 305.20) 5) Tobacco dependence, continuous (SNOMED CT 941555313) 6) Eczema (SNOMED CT 11354272) 7) Depression (SCT 34935846) 8) COPD - Chronic Obstructive Pulmonary Disease (SCT 58213372) 9) Anxiety (SCT 70875981) 10) Osteopenia 11) Exposure to potentially hazardous substance Problem list was reviewed. SOCIAL HISTORY Family History: MEDICATIONS: Active and Recently Outpatient Medications (including Supplies): Active Outpatient Medications Status 1) ALBUTEROL 90MCG (CFC-F) 200D ORAL INHL INHALE 2 PUFFS BY ACTIVE ORAL INHALATION FOUR TIMES A DAY NEEDED SHAKE WELL. RINSE MOUTHPIECE FREQUENTLY TO PREVENT CLOGGING. Indication: FOR COPD 2) CHOLECALCIF 25MCG (D3-1,000UNIT) TAB TAKE ONE TABLET BY ACTIVE MOUTH ONCE A DAY Indication: FOR VITAMIN D DEFICIENCY 3) FLUTICAS 250/SALMETEROL 50 INHL DISK 60 INHALE 1 INHALATION ACTIVE BY ORAL INHALATION TWICE A DAY (OPEN DISKUS; CLICK ONLY ONCE; MAY INHALE TWICE TO COMPLETE DOSE; CLOSE WHEN FINISHED) RINSE MOUTH AND SPIT AFTER EACH USE. Indication: FOR COPD 4) FLUTICASONE PROP 50MCG 120D NASAL INHL INSTILL 1 SPRAY IN ACTIVE NOSTRIL(S) ONCE A DAY (MUST BE USED DIRECTED FOR MINIMUM OF 21 DAYS TO PROVIDE ADEQUATE BENEFITS) Indication: FOR CHRONIC RHINOSINUSITIS 5) GABAPENTIN 300MG CAP TAKE ONE CAPSULE BY MOUTH THREE TIMES A ACTIVE (S) DAY NEEDED Indication: FOR NERVE PAIN 6) IBUPROFEN 800MG TAB TAKE ONE TABLET BY MOUTH EVERY EIGHT(8) ACTIVE (S) HOURS NEEDED FOR PAIN 7) MAGNESIUM CITRATE LIQUID TAKE 1 BOTTLE BY MOUTH 12PM AND 8PM ACTIVE 8) MONTELUKAST NA 10MG TAB TAKE ONE TABLET BY MOUTH EVERY ACTIVE EVENING 9) MULTIVITAMIN CAP/TAB TAKE 1 TABLET BY MOUTH ONCE A DAY ACTIVE Indication: FOR NUTRITION/DIETARY SUPPLEMENTATION Compared newly ordered medications and medication changes to active medications and non-VA medications, and then reviewed medications with patient and/or caregiver. All discrepancies noted and reconciled. Patient, or caregiver, was provided with reconciled medications list and advised to provide to all non VA providers. Potential adverse reactions of new medications were discussed with the patient. REVIEW OF SYSTEMS As per HPI, otherwise unremarkable. PHYSICAL EXAMINATION Telephone visit: [facility] telephone visit, limited exam, A&O x3, NAD. Speaks clearly and appropriately. VITALS Most recent vital signs: No data available BMI: 18.7 ASSESSMENT/PLAN 1. leg edema will get labs and EKG will ask RN to coordinate EKG with him 2 copd has not had lung ct he is agreeable smoker 1.5 -2 ppds since age 6 3 hx of elevated liver enzymes will get imaging he does drink about 3 beers a day Shared medical decision making occurred during this visit with the . Questions answered and [place] is agreeable with treatment plan. Labs/testing ordered discussed with [place]/caregiver and education was provided during this visit. DISPOSITION: Issue resolved with Clinical Contact Center appointment FOLLOW UP: Advised to keep all scheduled medical and follow-up appointments. [place] was advised to seek medical treatment if symptoms do not improve and/or worsens. Telephone visit: total time spent 25 in which 21 minutes was spent in medical discussion. Initial Lung Cancer Screen (Provider): No clinical exclusions, patient is a current candidate for the lung cancer screening program. Patient agrees to lung cancer screening. Lung cancer screening information provided and low dose CT will be ordered. Patient currently uses cigarettes and does not want assistance with smoking cessation at this time. /eris/ WISAM WEISS NURSE PRACTITIONER Signed: 06/26/2025 15:04 Receipt Acknowledged By: 06/27/2025 10:13 /es/ Samia Carter APRN, FNP-C, [facility] Gilmar Hernández [facility] for [place] DENSON 06/26/2025 15:27 /es/ Beatriz Greene RN [place] [facility], [facility] 06/27/2025 10:32 /es/ ROLANDO ORANTES LPN 06/26/2025 ADDENDUM STATUS: COMPLETED Contacted and he advised that he will come by the clinic tomorrow morning for labs and EKG. advised that the labs closes at noon. /eris/ Beatriz Greene RN [place] [facility], [facility] Signed: 06/26/2025 15:30 WISAM STEVEN [facility]
[2025-06-27] VITALS (9 sets, daily range): BP systolic 138–165; BP diastolic 82–100; PULSE 70–90; RESP 12–18; TEMP 36.6–37; O2SAT 98–99; BMI 19.1
--- OUTSIDE RECORDS SUMMARY | 2025-06-27 05:00 | XMS_ITS | Encounter Summary ---
Author Name [facility] Organization [facility] [place] Address [address] [place] [address] Care Team Providers Care Build Automation Engineer Name Role Phone ROME DENSON Primary Care Provider Unavail able Selected Encounter This section includes the information on record at [place] for the Encounter. Date/Time Encounter Type Encounter Description Reason Pro vider Source Jun 27, 2025 10:00 AM Outpatient Encounter PRIMARY CARE/MEDICINE IHE Encounter Template Text not used by MD Plan of Treatment: Future Appointments (+ 6 months) and Future Tests (+/- 45 days) The Plan of Treatment section includes future care activities for the patient from all [place] treatmentfacilities. This section includes future appointments and future orders which are active, pending or scheduled. Future Appointments This section includes appointments that were scheduled to occur 6 months from the date of the Encounter, up to a maximum of 20 appointments. The data comes from all [place] treatment facilities. Appointment Date/Time Appointment Type Appointme nt Facility Name Oct 06, 2025 01:00 PM AMBULATORY - MEDICINE [facility] Active, Pending, and Scheduled Orders This section includes a listing of several types of active, pending, and scheduled orders, including clinic medications orders, diagnostic test orders, procedure orders and consult orders; where the start date of the order is 45 days before the date of the Encounter or 45 days after the date of theEncounter. The data comes from all [place] treatment facilities. Test Date/Time Test Type Test Details Facility Name Jun 26, 2025 12:00 AM Imaging - Ultrasou nd Order US BLOOD FLOW ABD/RENAL DOPPLER (COMPLETE) [facility] Jun 26, 2025 02:46 PM Procedure Order CP EKG PB CP MUSE EKG POP 657A4 Proc Lamp Shade Joiner's Choice [facility] Jun 27, 2025 09:20 AM Laboratory - Chemistry Order TSH (MA-PB) GOLD/RED SST SERUM SP [facility] Jun 27, 2025 09:20 AM Laboratory - Chemistry Order FREE T4 (MA-PB) GOLD/RED SST SERUM [facility] Jun 27, 2025 09:20 AM Laboratory - Chemistry Order IRON/TIBC PROFILE GOLD/RED SST SERUM SP POPLAR BLBRODY [facility] Jun 27, 2025 09:20 AM Laboratory - Chemistry Order B12 GOLD/RED SST SERUM [facility]E [facility] Jun 27, 2025 09:20 AM Laboratory - Chemistry Order BRAIN NATRIURETIC PEPTIDE LAVENDER BLOOD PLASMA SP [facility] Jun 27, 2025 09:20 AM Laboratory - Chemistry Order [facility] Jun 27, 2025 09:20 AM Laboratory - Chemistry Order COMPREHENSIVE METABOLIC PANEL GREEN LI/HEP BLD/PLAS [facility] Vital Signs: All taken on the encounter date This section contains inpatient and outpatient Vital Signs collected on the date of the Encounter. Date/Time Temperature Pulse Blood Pressure Respiratory Rate SP02 Pain Height Weight Body Mass Index Source Jun 27, 2025 10:12 AM 98.4 F 81 /min 176/108 mm[Hg] 99 % [facility] Social History: Smoking Status (Most current) and Tobacco Use (All prior to encounter date) This section includes the most current, and the historical, smoking and tobacco- related health factors from the [place] facility where the Encounter took place. Current Smoking Status This section includes the most current smoking, or tobacco-related health factor, from the [place] facility where the Encounter took place. Date/Time Current Smoking Status Comment Facil ity Oct 08, 2024 03:00 PM VA-TOBACCO USE EVERY DAY CIGARET ANTONIO [facility] Tobacco Use History This section includes a history of the smoking, or tobacco-related health factors, that were collected on or before the date of the Encounter. The data comes from the [place] facility where the Encounter took place. 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 [facility] Sep 14, 2022 02:00 PM VA-TOBACCO USE MED NO [facility] Sep 14, 2022 02:00 PM VA-TOBACCO USE WI 30 MIN OF WAKE UP [place] [facility] Sep 14, 2022 02:00 PM VA-TOBACCO USER EVERY DAY [facility] Aug 31, 2021 01:00 PM VA-TOBACCO USE 30 YEARS OR MORE [facility] [place] Aug 31, 2021 01:00 PM VA-TOBACCO USE ADVICE [facility] Aug 31, 2021 01:00 PM 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 [facility] Aug 31, 2021 01:00 PM VA-TOBACCO USE MED NO [facility] Aug 31, 2021 01:00 PM VA-TOBACCO USE WI 30 MIN OF WAKE UP [facility] [place] Aug 31, 2021 01:00 PM VA-TOBACCO USER EVERY DAY [facility] [place] Nov 11, 2019 11:24 AM VA-TOBACCO USE 30 YEARS OR MORE [facility] Nov 11, 2019 11:24 AM VA-TOBACCO USE ADVICE [facility] Nov 11, 2019 11:24 AM 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 [facility] Nov 11, 2019 11:24 AM VA-TOBACCO USE MED NO [facility] Nov 11, 2019 11:24 AM VA-TOBACCO USE WI 30 MIN OF WAKE UP [place] [place] Nov 11, 2019 11:24 AM VA-TOBACCO USER EVERY DAY [facility] [place] 2018 09:34 AM VA-TOBACCO USE 5 TO 15 YEARS [facility] [place] [facility] 2018 09:34 AM VA-TOBACCO USE ADVICE [facility] 2018 09:34 AM 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 Date/Time Encounter Note(s) Provider Source Jun 27, 2025 10:22 AM NURSING PROGRESS N OTE: LOCAL TITLE: NURSING NOTE PB STANDARD TITLE: NURSING PROGRESS NOTE DATE OF NOTE: JUN 27, 2025@10:22 ENTRY DATE: JUN 27, 2025@10:22:39 AUTHOR: ROLANDO ORANTES EXP COSIGNER: URGENCY: STATUS: COMPLETED [place] in clinic today for EKG and Labs for f/u to [facility]] Urgent care visit on 06/26/2025. EKG obtained, per provider's order. Provider Maxim Desai not available for review, so presented EKG to Clinic INNOVATION MANAGER Sha to began to assess and treat . ultimately transferred to [facility] ED for evaluation. [place] noted to have raised, erythemic blotches allover his lower extremities. He reports that have worsened and are itching. He has been putting Cortisone cream on them with no help. /eris/ ROLANDO ORANTES LPN Signed: 06/27/2025 10:32 ROLANDO ORANTES [facility]
--- OUTSIDE RECORDS SUMMARY | 2025-06-27 10:42 | XMS_ITS | Continuity of Care Document ---
Author Name [facility] Organization [facility] Care Team Providers Care Jet Worker Name Role Phone [facility] Unavailable Unavailable Problems Combined list of problems from Department of Defense and Veterans Affairs facilities. It does not include entries that were removed or entered in error. Problem Status Onset Date Problem Type Date of Resolution Comments Source Alcohol dependence (SNOMED CT 26080358) Active Condition [place] [facility] Allergic rhinitis (SNOMED CT 38422626) Active Condition [place] [facility] Anxiety (SCT 43895998) Active Condition [place] [facility] Cannabis Abuse (ICD-9-CM 305.20) Active Condition [place] [facility] COPD - Chronic Obstructive Pulmonary Disease (SCT 31805204) Active Condition [place] [facility] Depression (SCT 68389270) Active Condition [facility] Eczema (SNOMED CT 96228290) Active Condition [place] [facility] Exposure to potentially hazardous substance Active Condition [facility] Osteoarthritis (SNOMED CT 027754485) Active Condition [place] [facility] Osteopenia [facility] Tobacco dependence, continuous (SNOMED CT 474374329) Active Condition [place] [facility] Alcohol Abuse Inactive Condition 2018 [place] [facility] Ankle Arthritis Inactive Condition 2018 [place] [facility] Ankle Pain Inactive Condition 2018 [place] [facility] Elbow Pain Inactive Condition 2018 [place] [facility] Encounters for other Specified Administrative Purpose (ICD-9-CM V68.89) Inactive Condition 2018 [place] [facility] Excoriation, 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) Inactive Condition 2018 [place] [facility] ROUTINE MEDICAL EXAM Inactive Condition 2018 [place] [facility] Diagnosis: ICD-10-CM J44.9 Chronic obstructive pulmonary disease, unspecified [facility] Diagnosis: ICD-10-CM Z00.00 Encntr for general adult medical exam w/o abnormal findings Active Diagnosis [facility] Medications Combined list of outpatient medications from Department of Defense and Veterans Affairs facilities.Medications provided include 1) outpatient medications from the last 15 months, and 2) patient-reported medications. Medication Details Route Status Patient Instructions Prescription Expires Prescription Number Last Dispense Date Ordering Provider Order Date Order Qty Source ALBUTEROL SO4 90MCG/ACTUA T (CFC-F) INHL,ORAL,8 .5GM INHALE 2 PUFFS BY ORAL INHALATI ON FOUR TIMES A DAY NEEDED FOR COPD SHAKE WELL. RINSE MOUTHPIE CE FREQUENT LY TO PREVENT CLOGGING . RESPIR ATORY (INHAL ATION) ACTIVE 10/09/2025 [id number] 5 Jesse DENSON R 2023 3 [facility] BISACODYL 5MG TAB,EC TAKE FOUR TABLETS BY MOUTH EVERY DAY DIRECTED FOR CONSTIPA TION AT 1400 THE DAY BEFORE THE COLONOSC OPY PROCEDUR E. ORAL 03/13/2025 [id number] 5 BENALCAZA R Maxim HERNANDEZ AVID A 2024 4 [place] [facility] CHOLECALCIF GUILHERME 25MCG (1,000UNIT) TAB TAKE ONE TABLET BY MOUTH ONCE A DAY FOR VITAMIN D DEFICIEN CY ORAL ACTIVE 10/09/2025 [id number] 5 Jesse DENSON R 2023 100 [facility] CHOLECALCIF GUILHERME 25MCG (1,000UNIT) TAB TAKE ONE TABLET BY MOUTH ONCE A DAY FOR VITAMIN D DEFICIEN CY ORAL DISCONT INUED 10/05/2024 [id number] 4 Jesse DENSON R 2022 100 [facility] FLUTICASONE 250MCG/SALM ETEROL 50MCG INHL,ORAL,D ISKUS,60 INHALE 1 INHALATI ON BY ORAL INHALATI ON TWICE A DAY FOR COPD (OPEN DISKUS; CLICK ONLY ONCE; MAY INHALE TWICE TO COMPLETE DOSE; CLOSE WHEN FINISHED ) RINSE MOUTH AND SPIT AFTER EACH USE. RESPIR ATORY (INHAL ATION) ACTIVE 10/09/2025 [id number] 4 Jesse DENSON R 2023 3 [facility] FLUTICASONE PROPIONATE 50MCG/SPRAY SOLN,NASAL, 16GM INSTILL 1 SPRAY IN NOSTRIL( S) ONCE A DAY FOR CHRONIC RHINOSIN USITIS (MUST BE USED DIRECTED FOR MINIMUM OF 21 DAYS TO PROVIDE ADEQUATE BENEFITS ) NASAL ACTIVE 10/09/2025 [id number] 4 Jesse DENSON R 2023 3 [facility] GABAPENTIN 300MG CAP TAKE ONE CAPSULE BY MOUTH THREE TIMES A DAY NEEDED FOR NERVE PAIN ORAL ACTIVE 08/07/2025 [id number] 5 Jesse DENSON R 2023 270 [facility] Ibuprofen (Motrin) Tablet 800 mg Oral TAKE ONE TABLET BY MOUTH EVERY EIGHT(8) HOURS NEEDEDFO R PAIN 03/14/2025 [id number] 4 ANAM WADE G 2023 90 [facility] IBUPROFEN 800MG TAB TAKE ONE TABLET BY MOUTH EVERY EIGHT(8) HOURS NEEDED FOR PAIN ORAL ACTIVE 05/06/2026 [id number] 5 Jesse DENSON R [address] [place] [address] [facility] IBUPROFEN 800MG TAB TAKE ONE TABLET BY MOUTH EVERY EIGHT(8) HOURS NEEDED FOR PAIN ORAL DISCONT INUED 09/06/2025 [id number] 5 Jesse DENSON R [address] [place] [address] [facility] IBUPROFEN 800MG TAB TAKE ONE TABLET BY MOUTH EVERY EIGHT(8) HOURS NEEDED FOR PAIN ORAL DISCONT INUED 03/14/2025 [id number] 4 RAHUL WADE G 2023 90 [place] [facility] MAGNESIUM CITRATE LIQUID,ORAL TAKE 1 BOTTLE BY MOUTH 12PM AND 8PM ORAL ACTIVE 02/15/2026 [id number] 5 Maxim MORRISSEY 2024 2 [place] [facility] MONTELUKAST NA 10MG TAB TAKE ONE TABLET BY MOUTH EVERY EVENING ORAL ACTIVE 10/09/2025 [id number] 4 Jesse DENSON R 2023 90 [facility] MULTIVITAMI NS CAP/TAB TAKE 1 TABLET BY MOUTH ONCE A DAY FOR NUTRITIO N/DIETAR Y SUPPLEME NTATION ORAL ACTIVE 03/20/2026 [id number] 5 Jesse DENSON R 2024 100 [facility]ULTIVITAMI NS CAP/TAB TAKE 1 TABLET BY MOUTH ONCE A DAY FOR SUPPLEME NTATION. ORAL 10/04/2024 [id number] 4 Jesse DENSON R 2022 100 [facility] ONDANSETRON HCL 8MG TAB,ORALLY DISINTEGRAT ING TAKE ONE TABLET UNDER THE TONGUE EVERY EIGHT(8) HOURS NEEDED FOR NAUSEA/V OMITING FOR NAUSEA AND VOMITING SUBLIN GUAL DISCONT INUED 03/13/2025 [id number] 5 Maxim MORRISSEY AVID A 2024 3 [place] [facility] ONDANSETRON HCL 8MG TAB,ORALLY DISINTEGRAT ING TAKE ONE TABLET UNDER THE TONGUE EVERY EIGHT(8) HOURS NEEDED FOR NAUSEA AND VOMITING . SUBLIN GUAL 03/16/2025 [id number] 5 Maxim MORRISSEY AVID A 2024 30 [facility] Allergies, Adverse Reactions, Alerts Combined list of allergies from Department of Defense and Veterans Affairs facilities. It does not include entries that were removed or entered in error. Substance Category Reaction Severity Reaction type Status Date Reported Comments Source No Known Allergies Drug allergy (disorder) active 07/21/2015 [facility] Immunizations Combined list of available immunizations from the Department of Defense and Veterans Affairs facilities. Immunization Series Date Given Administered By Site Reaction Lot Number CVX Code Drug Sourcing Intern Status Comments Source TDAP 2012 115 complet ed [facility] Results Combined list of recent chemistry, hematology and other laboratory results from Department of Defense and Veterans Affairs, ranging from 15 months to all on record, depending upon the facility. Order Name Results Value Reference Range Date Interpretation Specimen Comments Source TSH (MA-PB) THYROTROPIN [UNITS/VOLU ME] IN SERUM OR PLASMA 2.811 u[IU]/mL 0.47 - 5 10/08 Specimen Type: SERUM No comment entered. Ordering Provider: Jesse DENSON Report Released Date/Time : Sep 19, 2024 10:51 AM Reporting Lab: [place] [facility] [address] [place] [address] Performin g Lab: [place] [facility] [address] [place] [address] [facility] HGA1C HEMOGLOBIN A1C/HEMOGLO BIN.TOTAL IN BLOOD 5.5 4.0 - 6.0 10/08 Specimen Type: BLOOD No comment entered. Ordering Provider: Jesse DENSON Report Released Date/Time : Sep 19, 2024 10:51 AM Reporting Lab: [place] [facility] [address] [place] [address] Performin g Lab: [place] [facility] [address] [place] [address] [facility] CHOLESTERO L PANEL (PB) CHOLESTEROL [MASS/VOLUM E] IN SERUM OR PLASMA 185 mg/dL 0 - 200 10/08 Specimen Type: PLASMA No comment entered. Ordering Provider: Jesse DENSON Report Released Date/Time : Sep 19, 2024 10:51 AM Reporting Lab: [place] [facility] [address] [place] [address] Performin g Lab: [place] [facility] [address] [place] [address] [facility] CHOLESTERO L PANEL (PB) TRIGLYCERID E [MASS/VOLUM E] IN SERUM OR PLASMA 49 mg/dL 0 - 150 10/08 Specimen Type: PLASMA No comment entered. Ordering Provider: Jesse DENSON R Report Released Date/Time : Sep 19, 2024 10:51 AM Reporting Lab: [place] [facility] [address] [place] [address] Performin g Lab: [place] [facility] [address] [place] [address] [facility] CHOLESTERO L PANEL (PB) CHOLESTEROL IN LDL [MASS/VOLUM E] IN SERUM OR PLASMA BY CALCULATION 68.2 mg/dL 10/08 Specimen Type: PLASMA No comment entered. Ordering Provider: Jesse DENSON R Report Released Date/Time : Sep 19, 2024 10:51 AM Reporting Lab: [place] [facility] [address] [place] [address] Performin g Lab: [place] [facility] [address] [place] [address] [facility] CHOLESTERO L PANEL (PB) CHOLESTEROL IN HDL [MASS/VOLUM E] IN SERUM OR PLASMA 107.0 mg/dL 40 10/08 H Specimen Type: PLASMA No comment entered. Ordering Provider: Jesse DENSON Report Released Date/Time : Sep 19, 2024 10:51 AM Reporting Lab: [place] [facility] [address] [place] [address] Performin g Lab: [place] [facility] [address] [place] [address] [facility] CHOLESTERO L PANEL (PB) CHOLESTEROL IN HDL/CHOLEST GUILHERME.TOTAL [MASS RATIO] IN SERUM OR PLASMA 57.8 25 10/08 Specimen Type: PLASMA No comment entered. Ordering Provider: Jesse DENSON R Report Released Date/Time : Sep 19, 2024 10:51 AM Reporting Lab: [place] [facility] [address] [place] [address] Performin g Lab: [place] [facility] [address] [place] [address] [facility] VITAMIN D, 25-HYDROXY 25-HYDROXYV ITAMIN D3 [MASS/VOLUM E] IN SERUM OR PLASMA 49.0 ng/mL 30 - 96 10/08 Specimen Type: SERUM No comment entered. Ordering Provider: Jesse DENSON R Report Released Date/Time : Sep 19, 2024 10:51 AM Reporting Lab: [place] [facility] [address] [place] [address] Performin g Lab: [place] [facility] [address] [place] [address] [facility] COMPREHENS KIT METABOLIC PANEL CREATININE [MASS/VOLUM E] IN SERUM OR PLASMA 0.75 mg/dL 0.7 - 1.3 10/08 Specimen Type: PLASMA No comment entered. Ordering Provider: Jesse DENSON Report Released Date/Time : Sep 19, 2024 10:51 AM Reporting Lab: [place] [facility] [address] [place] [address] Performin g Lab: [place] [facility] [address] [place] [address] [facility] COMPREHENS KIT METABOLIC PANEL UREA NITROGEN [MASS/VOLUM E] IN SERUM OR PLASMA 6 mg/dL 9 - 25 10/08 L Specimen Type: PLASMA No comment entered. Ordering Provider: Jesse DENSON Report Released Date/Time : Sep 19, 2024 10:51 AM Reporting Lab: [place] [facility] [address] [place] [address] Performin g Lab: [place] [facility] [address] [place] [address] [facility] COMPREHENS KIT METABOLIC PANEL GLUCOSE [MASS/VOLUM E] IN SERUM OR PLASMA 96 mg/dL 72 - 99 10/08 Specimen Type: PLASMA No comment entered. Ordering Provider: Jesse DENSON Report Released Date/Time : Sep 19, 2024 10:51 AM Reporting Lab: [place] [facility] [address] [place] [address] Performin g Lab: [place] [facility] [address] [place] [address] [facility] COMPREHENS KIT METABOLIC PANEL SODIUM [MOLES/VOLU ME] IN SERUM OR PLASMA 130 meq/L 136 - 145 10/08 L Specimen Type: PLASMA No comment entered. Ordering Provider: Jesse DENSON Report Released Date/Time : Sep 19, 2024 10:51 AM Reporting Lab: [place] [facility] [address] [place] [address] Performin g Lab: [place] [facility] [address] [place] [address] [facility] COMPREHENS KIT METABOLIC PANEL POTASSIUM [MOLES/VOLU ME] IN SERUM OR PLASMA 4.9 meq/L 3.5 - 5 10/08 Specimen Type: PLASMA No comment entered. Ordering Provider: Jesse DENSON Report Released Date/Time : Sep 19, 2024 10:51 AM Reporting Lab: [place] [facility] [address] [place] [address] Performin g Lab: [place] [facility] [address] [place] [address] [facility] COMPREHENS KIT METABOLIC PANEL CHLORIDE [MOLES/VOLU ME] IN SERUM OR PLASMA 96 meq/L 98 - 107 10/08 L Specimen Type: PLASMA No comment entered. Ordering Provider: Jesse DENSON Report Released Date/Time : Sep 19, 2024 10:51 AM Reporting Lab: [place] [facility] [address] [place] [address] Performin g Lab: [place] [facility] [address] [place] [address] [facility] COMPREHENS KIT METABOLIC PANEL CARBON DIOXIDE, TOTAL [MOLES/VOLU ME] IN SERUM OR PLASMA 24 meq/L 22 - 31 10/08 Specimen Type: PLASMA No comment entered. Ordering Provider: Jesse DENSON R Report Released Date/Time : Sep 19, 2024 10:51 AM Reporting Lab: [place] [facility] [address] [place] [address] Performin g Lab: [place] [facility] [address] [place] [address] [facility] COMPREHENS KIT METABOLIC PANEL CALCIUM [MASS/VOLUM E] IN SERUM OR PLASMA 9.3 mg/dL 8.4 - 10.4 10/08 Specimen Type: PLASMA No comment entered. Ordering Provider: ROME DENSON Report Released Date/Time : Sep 19, 2024 10:51 AM Reporting Lab: [place] [facility] [address] [place] [address] Performin g Lab: [place] [facility] [address] [place] [address] [facility] COMPREHENS KIT METABOLIC PANEL PROTEIN [MASS/VOLUM E] IN SERUM OR PLASMA 8.4 g/dL 6 - 8.6 10/08 Specimen Type: PLASMA No comment entered. Ordering Provider: Jesse DENSON R Report Released Date/Time : Sep 19, 2024 10:51 AM Reporting Lab: [place] [facility] [address] [place] [address] Performin g Lab: [place] [facility] [address] [place] [address] [facility] COMPREHENS KIT METABOLIC PANEL ALBUMIN [MASS/VOLUM E] IN SERUM OR PLASMA 4.3 g/dL 3.4 - 5 10/08 Specimen Type: PLASMA No comment entered. Ordering Provider: Jesse DENSON Report Released Date/Time : Sep 19, 2024 10:51 AM Reporting Lab: [place] [facility] [address] [place] [address] Performin g Lab: [place] [facility] [address] [place] [address] [facility] COMPREHENS KIT METABOLIC PANEL BILIRUBIN.T OTAL [MASS/VOLUM E] IN SERUM OR PLASMA 0.5 mg/dL 0.2 - 1.2 10/08 Specimen Type: PLASMA No comment entered. Ordering Provider: Jesse DENSON Report Released Date/Time : Sep 19, 2024 10:51 AM Reporting Lab: [place] [facility] [address] [place] [address] Performin g Lab: [place] [facility] [address] [place] [address] [facility] COMPREHENS KIT METABOLIC PANEL ALKALINE PHOSPHATASE [ENZYMATIC ACTIVITY/VO LUME] IN SERUM OR PLASMA 78 U/L 40 - 150 10/08 Specimen Type: PLASMA No comment entered. Ordering Provider: Jesse DENSON Report Released Date/Time : Sep 19, 2024 10:51 AM Reporting Lab: [place] [facility] [address] [place] [address] Performin g Lab: [place] [facility] [address] [place] [address] [facility] COMPREHENS KIT METABOLIC PANEL ASPARTATE AMINOTRANSF ERASE [ENZYMATIC ACTIVITY/VO LUME] IN SERUM OR PLASMA 99 U/L 5 - 34 10/08 H Specimen Type: PLASMA No comment entered. Ordering Provider: Jesse DENSON R Report Released Date/Time : Sep 19, 2024 10:51 AM Reporting Lab: [place] [facility] [address] [place] [address] Performin g Lab: [place] [facility] [address] [place] [address] [facility] COMPREHENS KIT METABOLIC PANEL ALANINE AMINOTRANSF ERASE [ENZYMATIC ACTIVITY/VO LUME] IN SERUM OR PLASMA 72 U/L 8 - 40 10/08 H Specimen Type: PLASMA No comment entered. Ordering Provider: Jesse DENSON R Report Released Date/Time : Sep 19, 2024 10:51 AM Reporting Lab: [place] [facility] [address] [place] [address] Performin g Lab: [place] [facility] [address] [place] [address] [facility] COMPREHENS KIT METABOLIC PANEL GLOMERULAR FILTRATION RATE/1.73 SQ M.PREDICTED [VOLUME RATE/AREA] IN SERUM, PLASMA OR BLOOD BY CREATININE- BASED FORMULA (CKD-EPI 2020) 107 10/08 Specimen Type: PLASMA No comment entered. Ordering Provider: Jesse DENSON Report Released Date/Time : Sep 19, 2024 10:51 AM Reporting Lab: [place] [facility] [address] [place] [address] Performin g Lab: [place] [facility] [address] [place] [address] [facility] URINALYSIS (STL-PB) COLOR OF URINE Light Yellow 10/08 Specimen Type: URINE No comment entered. Ordering Provider: Jesse DENSON R Report Released Date/Time : Sep 19, 2024 10:51 AM Reporting Lab: [place] [facility] [address] [place] [address] Performin g Lab: [place] [facility] [address] [place] [address] [facility] URINALYSIS (STL-PB) BILIRUBIN.T OTAL [PRESENCE] IN URINE BY TEST STRIP NEGATIVEm g/dL 10/08 Specimen Type: URINE No comment entered. Ordering Provider: Jesse DENSON Report Released Date/Time : Sep 19, 2024 10:51 AM Reporting Lab: [place] [facility] [address] [place] [address] Performin g Lab: [place] [facility] [address] [place] [address] [facility] URINALYSIS (STL-PB) PH OF URINE BY TEST STRIP 7.0 5.0 - 8.0 10/08 Specimen Type: URINE No comment entered. Ordering Provider: Jesse DENSON Report Released Date/Time : Sep 19, 2024 10:51 AM Reporting Lab: [place] [facility] [address] [place] [address] Performin g Lab: [place] [facility] [address] [place] [address] [facility] URINALYSIS (STL-PB) APPEARANCE OF URINE CLEAR 10/08 Specimen Type: URINE No comment entered. Ordering Provider: Jesse DENSON Report Released Date/Time : Sep 19, 2024 10:51 AM Reporting Lab: [place] [facility] [address] [place] [address] Performin g Lab: [place] [facility] [address] [place] [address] [facility] URINALYSIS (STL-PB) NITRITE [PRESENCE] IN URINE BY TEST STRIP NEGATIVEm g/dL 10/08 Specimen Type: URINE No comment entered. Ordering Provider: Jesse DENSON Report Released Date/Time : Sep 19, 2024 10:51 AM Reporting Lab: [place] [facility] [address] [place] [address] Performin g Lab: [place] [facility] [address] [place] [address] [facility] URINALYSIS (STL-PB) GLUCOSE [MASS/VOLUM E] IN URINE BY TEST STRIP NORMALmg/ dL 10/08 Specimen Type: URINE No comment entered. Ordering Provider: Jesse DENSON Report Released Date/Time : Sep 19, 2024 10:51 AM Reporting Lab: [place] [facility] [address] [place] [address] Performin g Lab: [place] [facility] [address] [place] [address] [facility] URINALYSIS (STL-PB) PROTEIN [MASS/VOLUM E] IN URINE BY TEST STRIP NEGATIVEm g/dL 10/08 Specimen Type: URINE No comment entered. Ordering Provider: Jesse DENSON Report Released Date/Time : Sep 19, 2024 10:51 AM Reporting Lab: [place] [facility] [address] [place] [address] Performin g Lab: [place] [facility] [address] [place] [address] [facility] URINALYSIS (STL-PB) URN.UROBILI NOGEN NORMALmg/ dL 10/08 Specimen Type: URINE No comment entered. Ordering Provider: Jesse DENSON Report Released Date/Time : Sep 19, 2024 10:51 AM Reporting Lab: [place] [facility] [address] [place] [address] Performin g Lab: [place] [facility] [address] [place] [address] [facility] URINALYSIS (STL-PB) HEMOGLOBIN [MASS/VOLUM E] IN URINE BY TEST STRIP NEGATIVEm g/dL 10/08 Specimen Type: URINE No comment entered. Ordering Provider: Jesse DENSON Report Released Date/Time : Sep 19, 2024 10:51 AM Reporting Lab: [place] [facility] [address] [place] [address] Performin g Lab: [place] [facility] [address] [place] [address] [facility] URINALYSIS (STL-PB) KETONES [MASS/VOLUM E] IN URINE BY TEST STRIP NEGATIVEm g/dL 10/08 Specimen Type: URINE No comment entered. Ordering Provider: Jesse DENSON R Report Released Date/Time : Sep 19, 2024 10:51 AM Reporting Lab: [place] [facility] [address] [place] [address] Performin g Lab: [place] [facility] [address] [place] [address] [facility] URINALYSIS (STL-PB) URN.LEUK.ES T. NEGATIVE 10/08 Specimen Type: URINE No comment entered. Ordering Provider: Jesse DENSON Report Released Date/Time : Sep 19, 2024 10:51 AM Reporting Lab: [place] [facility] [address] [place] [address] Performin g Lab: [place] [facility] [address] [place] [phone] 8 [facility] URINALYSIS (STL-PB) SPECIFIC GRAVITY OF URINE 1.010 1.005 - 1.029 10/08 Specimen Type: URINE No comment entered. Ordering Provider: Jesse DENSON Report Released Date/Time : Sep 19, 2024 10:51 AM Reporting Lab: [place] [facility] [address] [place] [address] Performin g Lab: [place] [facility] [address] [place] [address] [facility] CBC LEUKOCYTES [#/VOLUME] IN BLOOD BY AUTOMATED COUNT 6.4 10*3/uL 3.6 - 11.2 10/08 Specimen Type: BLOOD No comment entered. Ordering Provider: Jesse DENSON Report Released Date/Time : Sep 19, 2024 10:51 AM Reporting Lab: [place] [facility] [address] [place] [address] Performin g Lab: [place] [facility] [address] [place] [address] [facility] CBC ERYTHROCYTE S [#/VOLUME] IN BLOOD BY AUTOMATED COUNT 4.39 10*6/uL 4.10 - 5.70 10/08 Specimen Type: BLOOD No comment entered. Ordering Provider: Jesse DENSON R Report Released Date/Time : Sep 19, 2024 10:51 AM Reporting Lab: [place] [facility] [address] [place] [address] Performin g Lab: [place] [facility] [address] [place] [place] [address] [facility] CBC HEMOGLOBIN [MASS/VOLUM E] IN BLOOD 14.7 g/dL 13.1 - 16.8 10/08 Specimen Type: BLOOD No comment entered. Ordering Provider: Jesse DENSON Report Released Date/Time : Sep 19, 2024 10:51 AM Reporting Lab: [place] [facility] [address] [place] [address] Performin g Lab: [place] [facility] [address] [place] [place] [address] [facility] CBC HEMATOCRIT [VOLUME FRACTION] OF BLOOD 44.3 38.2 - 48.4 10/08 Specimen Type: BLOOD No comment entered. Ordering Provider: Jesse DENSON Report Released Date/Time : Sep 19, 2024 10:51 AM Reporting Lab: [place] [facility] [address] [place] [address] Performin g Lab: [place] [facility] [address] [place] [address] [facility] CBC MCV [ENTITIC VOLUME] BY AUTOMATED COUNT 100.9 fL 80.0 - 100.0 10/08 H Specimen Type: BLOOD No comment entered. Ordering Provider: Jesse DENSON Report Released Date/Time : Sep 19, 2024 10:51 AM Reporting Lab: [place] [facility] [address] [place] [address] Performin g Lab: [place] [facility] [address] [place] [address] [facility] CBC MCH [ENTITIC MASS] BY AUTOMATED COUNT 33.5 pg 27.0 - 34.0 10/08 Specimen Type: BLOOD No comment entered. Ordering Provider: Jesse DENSON R Report Released Date/Time : Sep 19, 2024 10:51 AM Reporting Lab: [place] [facility] [address] [place] [address] Performin g Lab: [place] [facility] [address] [place] [address] 8 [facility] CBC MCHC [MASS/VOLUM E] BY AUTOMATED COUNT 33.2 g/dL 33.0 - 36.0 10/08 Specimen Type: BLOOD No comment entered. Ordering Provider: Jesse DENSON R Report Released Date/Time : Sep 19, 2024 10:51 AM Reporting Lab: [place] [facility] [address] [place] [address] Performin g Lab: [place] [facility] [address] [place] [address] [facility] CBC PLATELETS [#/VOLUME] IN BLOOD BY AUTOMATED COUNT 261 10*3/uL 150 - 400 10/08 Specimen Type: BLOOD No comment entered. Ordering Provider: Jesse DENSON R Report Released Date/Time : Sep 19, 2024 10:51 AM Reporting Lab: [place] [facility] [address] [place] [address] Performin g Lab: [place] [facility] [address] [place] [address] [facility] CBC PLATELET MEAN VOLUME [ENTITIC VOLUME] IN BLOOD BY AUTOMATED COUNT 10.7 fL 7.5 - 11.2 10/08 Specimen Type: BLOOD No comment entered. Ordering Provider: Jesse DENSON R Report Released Date/Time : Sep 19, 2024 10:51 AM Reporting Lab: [place] [facility] [address] [place] [address] Performin g Lab: [place] [facility] [address] [place] [address] 8 [facility] CBC ERYTHROCYTE DISTRIBUTIO N WIDTH [RATIO] BY AUTOMATED COUNT 12.1 11.8 - 15.1 10/08 Specimen Type: BLOOD No comment entered. Ordering Provider: Jesse DENSON Report Released Date/Time : Sep 19, 2024 10:51 AM Reporting Lab: [place] [facility] [address] [place] [address] Performin g Lab: [place] [facility] [address] [place] [address] [facility] CBC LYMPHOCYTES /100 LEUKOCYTES IN BLOOD BY AUTOMATED COUNT 37.6 10/08 Specimen Type: BLOOD No comment entered. Ordering Provider: Jesse DENSON Report Released Date/Time : Sep 19, 2024 10:51 AM Reporting Lab: [place] [facility] [address] [place] [address] Performin g Lab: [place] [facility] [address] [place] [address] [facility] CBC MONOCYTES/1 00 LEUKOCYTES IN BLOOD BY AUTOMATED COUNT 12.9 10/08 Specimen Type: BLOOD No comment entered. Ordering Provider: Jesse DENSON Report Released Date/Time : Sep 19, 2024 10:51 AM Reporting Lab: [place] [facility] [address] [place] [address] 8 Performin g Lab: [place] [facility] [address] [place] [address] 8 [facility] CBC NEUTROPHILS /100 LEUKOCYTES IN BLOOD BY AUTOMATED COUNT 46.5 10/08 Specimen Type: BLOOD No comment entered. Ordering Provider: Jesse DENSON Report Released Date/Time : Sep 19, 2024 10:51 AM Reporting Lab: [place] [facility] [address] [place] [address] Performin g Lab: [place] [facility] [address] [place] [address] [facility] CBC EOSINOPHILS /100 LEUKOCYTES IN BLOOD BY AUTOMATED COUNT 2.2 10/08 Specimen Type: BLOOD No comment entered. Ordering Provider: Jesse DENSON R Report Released Date/Time : Sep 19, 2024 10:51 AM Reporting Lab: [place] [facility] [address] [place] [address] 8 Performin g Lab: [place] [facility] [address] [place] [address] [facility] CBC BASOPHILS/1 00 LEUKOCYTES IN BLOOD BY AUTOMATED COUNT 0.5 10/08 Specimen Type: BLOOD No comment entered. Ordering Provider: Jesse DENSON Report Released Date/Time : Sep 19, 2024 10:51 AM Reporting Lab: [place] [facility] [address] [place] [address] Performin g Lab: [place] [facility] [address] [place] [address] 8 [facility] CBC LYMPHOCYTES [#/VOLUME] IN BLOOD BY AUTOMATED COUNT 2.41 10*3/uL 0.77 - 4.50 10/08 Specimen Type: BLOOD No comment entered. Ordering Provider: Jesse DENSON Report Released Date/Time : Sep 19, 2024 10:51 AM Reporting Lab: [place] [facility] [address] [place] [address] 8 Performin g Lab: [place] [facility] [address] [place] [address] [facility] CBC MONOCYTES [#/VOLUME] IN BLOOD BY AUTOMATED COUNT 0.83 10*3/uL 0.19 - 0.8 10/08 H Specimen Type: BLOOD No comment entered. Ordering Provider: Jesse DENSON R Report Released Date/Time : Sep 19, 2024 10:51 AM Reporting Lab: [place] [facility] [address] [place] [address] Performin g Lab: [place] [facility] [address] [place] [address] [facility] CBC NEUTROPHILS [#/VOLUME] IN BLOOD BY AUTOMATED COUNT 2.98 10*3/uL 2.10 - 8.00 10/08 Specimen Type: BLOOD No comment entered. Ordering Provider: Jesse DENSON Report Released Date/Time : Sep 19, 2024 10:51 AM Reporting Lab: [place] [facility] [address] [place] [address] Performin g Lab: [place] [facility] [address] [place] [address] 8 [facility] CBC EOSINOPHILS [#/VOLUME] IN BLOOD BY AUTOMATED COUNT 0.14 10*3/uL 0.00 - 0.60 10/08 Specimen Type: BLOOD No comment entered. Ordering Provider: Jesse DENSON R Report Released Date/Time : Sep 19, 2024 10:51 AM Reporting Lab: [place] [facility] [address] [place] [address] Performin g Lab: [place] [facility] [address] [place] [address] 8 [facility] CBC BASOPHILS [#/VOLUME] IN BLOOD BY AUTOMATED COUNT 0.03 10*3/uL 0.00 - 0.20 10/08 Specimen Type: BLOOD No comment entered. Ordering Provider: Jesse DENSON R Report Released Date/Time : Sep 19, 2024 10:51 AM Reporting Lab: [place] [facility] [address] [place] [address] Performin g Lab: [place] [facility] [address] [place] [address] [facility] CBC IMMATURE GRANULOCYTE S/100 LEUKOCYTES IN BLOOD BY AUTOMATED COUNT 0.3 10/08 Specimen Type: BLOOD No comment entered. Ordering Provider: Jesse DENSON R Report Released Date/Time : Sep 19, 2024 10:51 AM Reporting Lab: [place] [facility] [address] [place] [address] Performin g Lab: [place] [facility] [address] [place] [address] 8 [facility] CBC IMMATURE GRANULOCYTE S [#/VOLUME] IN BLOOD BY AUTOMATED COUNT 0.02 10*3/uL 0.00 - 0.05 10/08 Specimen Type: BLOOD No comment entered. Ordering Provider: Jesse DENSON Report Released Date/Time : Sep 19, 2024 10:51 AM Reporting Lab: [place] [facility] [address] [place] [address] Performin g Lab: [place] [facility] [address] [place] [address] [facility] HGA1C HEMOGLOBIN A1C/HEMOGLO BIN.TOTAL IN BLOOD 5.6 4.0 - 6.0 09/19 Specimen Type: BLOOD No comment entered. Ordering Provider: Jesse DENSON R Report Released Date/Time : Sep 19, 2023 01:42 PM Reporting Lab: [place] [facility] [address] [place] [address] Performin g Lab: [place] [facility] [address] [place] [address] [facility] PROST. SPECIFIC AG.(PB-STL ) PROSTATE SPECIFIC AG [MASS/VOLUM E] IN SERUM OR PLASMA 0.57 ng/mL 0 - 4 09/19 Specimen Type: SERUM No comment entered. Ordering Provider: Jesse DENSON Report Released Date/Time : Sep 19, 2023 01:42 PM Reporting Lab: [place] [facility] [address] [place] [address] 8 Performin g Lab: [place] [facility] [address] [place] [phone] [facility] CHOLESTERO L PANEL (PB) CHOLESTEROL [MASS/VOLUM E] IN SERUM OR PLASMA 133 mg/dL 0 - 200 09/19 Specimen Type: PLASMA No comment entered. Ordering Provider: Jesse DENSON R Report Released Date/Time : Sep 19, 2023 01:42 PM Reporting Lab: [place] [facility] [address] [place] [phone] 8 Performin g Lab: [place] [facility] [address] [place] [phone] 8 [facility] CHOLESTERO L PANEL (PB) TRIGLYCERID E [MASS/VOLUM E] IN SERUM OR PLASMA 59 mg/dL 0 - 150 09/19 Specimen Type: PLASMA No comment entered. Ordering Provider: Jesse DENSON Report Released Date/Time : Sep 19, 2023 01:42 PM Reporting Lab: [place] [facility] [address] [place] [address] Performin g Lab: [place] [facility] [address] [place] [address] [facility] CHOLESTERO L PANEL (PB) CHOLESTEROL IN LDL [MASS/VOLUM E] IN SERUM OR PLASMA BY CALCULATION 51.9 mg/dL 09/19 Specimen Type: PLASMA No comment entered. Ordering Provider: Jesse DENSON Report Released Date/Time : Sep 19, 2023 01:42 PM Reporting Lab: [place] [facility] [address] [place] [address] Performin g Lab: [place] [facility] [address] [place] [address] [facility] CHOLESTERO L PANEL (PB) CHOLESTEROL IN HDL [MASS/VOLUM E] IN SERUM OR PLASMA 69.3 mg/dL 40 09/19 H Specimen Type: PLASMA No comment entered. Ordering Provider: Jesse DENSON Report Released Date/Time : Sep 19, 2023 01:42 PM Reporting Lab: [place] [facility] [address] [place] [address] Performin g Lab: [place] [facility] [address] [place] [address] [facility] CHOLESTERO L PANEL (PB) CHOLESTEROL IN HDL/CHOLEST GUILHERME.TOTAL [MASS RATIO] IN SERUM OR PLASMA 52.1 25 09/19 Specimen Type: PLASMA No comment entered. Ordering Provider: Jesse DENSON R Report Released Date/Time : Sep 19, 2023 01:42 PM Reporting Lab: [place] [facility] [address] [place] [address] Performin g Lab: [place] [facility] [address] [place] [address] [facility] Vital Signs Combined list of inpatient and outpatient Vital Signs from Department of Defense and Veterans Affairs, ranging from 12 months to all on record, depending upon the facility. Vital Sign Value Date Comments Source SYSTOLIC BLOOD PRESSURE 176 06/27/2025 10:12:00 [facility] DIASTOLIC BLOOD PRESSURE 108 06/27/2025 10:12:00 [facility] PULSE OXIMETRY 99 % 06/27/2025 10:12:00 [facility] TEMPERATURE 98.4 06/27/2025 10:12:00 [facility] PULSE 81 06/27/2025 10:12:00 [facility] SYSTOLIC BLOOD PRESSURE 135 10/08/2024 15:18:57 [facility] DIASTOLIC BLOOD PRESSURE 87 10/08/2024 15:18:57 [facility] PULSE OXIMETRY 96 10/08/2024 15:18:57 [facility] WEIGHT 133.5 10/08/2024 15:18:57 [facility] BMI 19 kg/m2 10/08/2024 15:18:57 [facility] TEMPERATURE 97.8 10/08/2024 15:18:57 [facility] PULSE 84 10/08/2024 15:18:57 [facility] RESPIRATION 18 10/08/2024 15:18:57 [facility] Encounters Combined list of: 1) Encounters from Department of [facility] Affairs facilities going backup to the last 18 months, not all [place] inpatient encounters are included; 2) Encounters from the Department of [facility] facilities going backup to 280 months. Location Location Details Encounter Type Encounter Number Reason For Visit Attending Provider ADM Date DC Date Status Disposition Source [place] [facility] Outpatient Encounter [id number] 01/[address] [place] [address] [facility] Outpatient Encounter [id number] 01/29 [facility] [place] [facility] Outpatient Encounter [id number] HEENA ROBISON 03/13 [place] [facility] [place] [facility] Encounter [id number] 08/06 [place] [facility] [place] [facility] Encounter [id number] 09/[address] [place] [address] [facility] Outpatient Encounter [id number] 09/19 [facility] [place] [facility] En[facility] [id number] 09/25 [place] [facility] Outpatient Encounter [id number] 10/03 [facility] En[facility] [id number] 10/08 [facility] Outpatient Encounter [id number] Diagnos is: ICD-10- CM Z00.00 Encntr for general adult medical exam w/o abnorma l finding s MIGUEL DENSON 10/08 [facility] Outpatient Encounter [id number] 10/13 [facility] Outpatient Encounter [id number] 11/14 [facility] Outpatient Encounter [id number] 12/10 [facility] Outpatient Encounter [id number] 01/23 [facility] Outpatient Encounter [id number] 02/11 [facility] Encounter [id number] ALEJANDRA TATE 02/11 [facility] Encounter [id number] 03[facility]05 [facility] Outpatient Encounter [id number] 03/18 [place] [facility] Outpatient Encounter [id number] 03/24 [facility] [place] [facility] Outpatient Encounter [id number] 05/05 [place] [facility] [place] [facility] Encounter [id number] 06/26 [place] [facility] [place] [facility] Encounter [id number] 06/26 [place] [facility] [place] [facility] Encounter [id number] 06/26 [place] [facility] [place] [facility] SYNCH AUDIO-ONLY EST LOW 20 [id number] Diagnos is: ICD-10- CM J44.9 Chronic obstruc tive pulmona ry disease , unspeci fied MADDIE STEVEN N L 06/26 [place] [facility] Outpatient Encounter [id number] 06/27 [facility] Social History Combined list of available smoking, tobacco, and other social history from Department of Defense and Veterans Affairs facilities. Social History Type Response Date Comment Sourc e Tobacco smoking status [facility] VA-TOBACCO NEVER USED OTHER TYPE 10/08/2024 [facility] History of tobacco use VA-TOBACCO USE EVERY DAY CIGARETTES 10/08/2024 [facility] History of tobacco use VA-TOBACCO USER EVERY DAY 09/14/2022 [facility] History of tobacco use VA-TOBACCO USER EVERY DAY 08/31/2021 [facility] History of tobacco use VA-TOBACCO USE HAM [facility]ASSER NO 11/11/2019 [facility] History of tobacco use VA-TOBACCO USER EVERY DAY 2018 [facility] History of tobacco use TOBACCO OFFERED STOP SMOKING [facility]INIC 07/19/2012 [facility] History of tobacco use TOBACCO OFFERED PT MEDS (PROVIDER) 11/03/2009 [facility] History of tobacco use TOBACCO OFFERED STOP SMOKING CLINIC 10/08/2009 [facility] History of tobacco use CURRENT TOBACCO USER 10/28/2003 [facility] History of tobacco use CURRENT TOBACCO USER 12/31/2002 [facility] History of tobacco use CURRENT TOBACCO USER 05/01/2002 [facility] History of tobacco use CURRENT TOBACCO USER 07/13/2001 [facility] This section is an empty social history section. DoD Plan of Care List of future care activities from Department of Veterans Affairs facilities. Additional future care activities may be listed in the Assessment and Plan section. Date/Time Care Activity Care Activity Detail Facili ty 06/27/2025 AMBULATORY - MEDICINE [facility]
--- NOTE | 2025-06-27 10:50 | ECG_ITS ---
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
--- NOTE | 2025-06-27 10:50 | XRR_ITS ---
PROCEDURE INFORMATION: Exam: XR Chest Exam date and time: 06/27/2025 10:58 AM Age: 54 years old Clinical indication: Shortness of breath; Additional info: Sob/copd TECHNIQUE: Imaging protocol: Radiologic exam of the chest. Views: 1 view. COMPARISON: No relevant prior studies available. FINDINGS: Lungs: Unremarkable. No consolidation or mass. Pleural spaces: Unremarkable. No pleural effusion. No pneumothorax. Heart/Mediastinum: Unremarkable. No cardiomegaly. Bones/joints: Unremarkable. XR/XR chest 1V portable [id number] IMPRESSION: No acute findings.
--- NOTE | 2025-06-27 10:51 | W.ED.SOB ---
Documented by User: LY Gramajo 06/27/25 14:16 HPI - SOB/Dyspnea General: Chief Complaint: General Medical Stated Complaint: rash/leg swelling Time Seen by Provider: 06/27/25 10:39 Source: patient Mode of arrival: ambulatory Limitations: no limitations History of Present Illness: HPI Narrative: Patient is a 54-year-old male with a history of COPD here from the [place] clinic. Patient states the [place] sent him due to concerns of shortness of breath as well as an abnormal EKG finding while at their office. He also has a complaint of a rash to his arms and legs over the past month. Upon my initial examination with patient, he appears in no acute distress. He is not complaining of chest pain or shortness of breath. He says his dyspnea seems to come and go but is not any different than his normal COPD. He does continue to smoke. He has noticed a small amount of leg swelling. MD elicited complaint: shortness of breath Pertinent past history: COPD Onset (ago): week(s) Timing: intermittent Severity: moderate Exacerbating factors: exertion Relieving factors: nothing Known history of: COPD Associated symptoms: Deny abdominal pain, chest pain, dizziness, extremity pain, fever(s), hemoptysis, nausea, palpitations, syncope or vomiting Treatment prior to arrival: none Related Data Home Medications ?Medication ?Instructions ?Recorded ?Confirmed albuterol-budesonide 1 - 2 inh inhalation DAILY PRN 02/11/25 03/25/25 Shortness Of Breath Or Wheezing gabapentin 300 mg PO 3XD PRN Pain 02/11/25 03/25/25 ibuprofen 800 mg tablet 800 mg PO Q8H 02/11/25 03/25/25 cholecalciferol (vitamin D3) 25 25 mcg PO DAILY 03/05/25 03/25/25 mcg (1,000 unit) capsule (Vitamin D3) fluticasone 250 mcg-salmeterol 50 1 inh inhalation BID 03/05/25 03/25/25 mcg/dose blistr powdr for inhalation multivitamin 1 cap PO 1XD 03/05/25 03/25/25 Previous Rx's ?Medication ?Instructions ?Recorded ondansetron 8 mg disintegrating 8 mg PO Q8H PRN nausea and 02/14/25 tablet vomiting #3 tabs Allergies Allergy/AdvReac Type Severity Reaction Status Date / Time No Known Allergies Allergy Verified 06/27/25 10:37 Review of Systems Const: Denies: fever(s), chills, body aches, fatigue or malaise Card: Reports: edema and dyspnea on exertion; Denies: chest pain, palpitations, irregular heart rhythm, syncope or pre-syncope Resp: Reports: dyspnea; Denies: wheezing, pain on inspiration, change in phlegm color or hemoptysis GI: Denies: abdominal pain, nausea or vomiting Musc: Reports: extremity swelling; Denies: neck pain, back pain, extremity pain, joint pain or joint swelling Skin/Breast: Reports: rash Neuro: Denies: headache(s) or dizziness PFSH ED PFSH: Social History Smoking and tobacco/nicotine status: current every day tobacco/nicotine user (1 11/28- 2 PPD) Physical Exam Const: COMMON NORMALS: no acute distress, average body habitus, patient oriented x3, no limitations, healthy appearing, alert and well nourished GENERAL APPEARANCE: cooperative ORIENTATION/CONSCIOUSNESS: Yes awake, Yes oriented to person, Yes oriented to place and Yes oriented to time HENMT: COMMON NORMALS: normocephalic and atraumatic HEAD & SCALP: normal to inspection, normocephalic and atraumatic Neck/C-Spine: COMMON NORMALS: full ROM, no lymphadenopathy, supple and no meningeal signs Chest: COMMONS NORMALS: normal inspection of the chest Resp: COMMON NORMALS: normal respiratory effort and clear to auscultation bilaterally AUSCULTATION: clear to auscultation bilaterally Cardio: COMMON NORMALS: regular rate and regular rhythm RATE: regular rate RHYTHM: regular rhythm GI: COMMON NORMALS: Normal to inspection, nondistended, normoactive bowel sounds present, Soft to palpation, non-tender, No hepatosplenomegaly present and no masses PALPATION: Yes Soft to palpation and Yes No hepatosplenomegaly present : COMMON NORMALS: Yes no CVA tenderness BLADDER/KIDNEY EXAM: Yes no CVA tenderness Back/Pelvis: COMMON NORMALS: no CVA tenderness and thoracic and lumbar spine normal to inspection Extremity: COMMON NORMALS: normal to inspection GENERAL: Yes normal exam except as noted OTHER: mild distal leg edema Neuro: COMMON NORMALS: patient oriented x3, moves all extremities, no focal motor deficits and no sensory deficits noted SENSORIUM/ORIENTATION: Yes alert, Yes oriented to person, Yes oriented to place and Yes oriented to time MENINGEAL SIGNS: Yes no meningeal signs Skin: COMMON NORMALS: no rashes or lesions noted NARRATIVE SKIN EXAM: erythematous psoriatic/plaque/scaly-like rash noted to arms and legs bilaterally GENERAL SKIN EXAM: no rashes or lesions noted Course ED course: Dr. Jc assuming care of this patient due to his abnormal EKG here in ED. ES Vital Signs: Vital signs: Vital Signs Temperature 97.9 F 06/27/25 10:32 Pulse Rate 72 06/27/25 14:12 Respiratory Rate 18 06/27/25 12:25 Blood Pressure 161/97 06/27/25 14:12 Pulse Oximetry 99 06/27/25 14:12 Oxygen Delivery Me thod Room Air 06/27/25 12:25 MDM - SOB/Dyspnea Medical Decision Making Please see Dr. Jc's MDM as he assumed care of this patient and spoke to cardiology/hospitalist for admission Lab Data 06/27/25 11:05 06/27/25 11:05 Labs/Radiology: Radiology Impressions Chest X-Ray 06/27/25 10:50 IMPRESSION: No acute findings. Laboratory Results WBC 6.60 10^3/uL (3.29-11.43) 06/27/25 11:05 RBC 4.34 10^6/uL (3.85-5.65) 06/27/25 11:05 Hgb 14.90 g/dL (11.27-16.99) 06/27/25 11:05 Hct 44.4 % (37-53) 06/27/25 11:05 MCV 102.3 fl (82-101) H 06/27/25 11:05 MCH 34.3 pg (27-33) H 06/27/25 11:05 MCHC 33.6 g/dL (30-55) 06/27/25 11:05 RDW 12.7 % (12.1-15.1) 06/27/25 11:05 Plt Count 234 10^3/cmm (157-399) 06/27/25 11:05 MPV 8.3 fL (7.4-10.4) 06/27/25 11:05 Neut % (Auto) 52.5 % 06/27/25 11:05 Lymph % (Auto) 31.5 % 06/27/25 11:05 [place] % (Auto) 11.2 % 06/27/25 11:05 Eos % (Auto) 3.8 % 06/27/25 11:05 Baso % (Auto) 0.8 % 06/27/25 11:05 Neut # (Auto) 3.47 10^3/uL (1.8-7.7) 06/27/25 11:05 Lymph # (Auto) 2.1 10^3/uL (0.8-4.8) 06/27/25 11:05 [place] # (Auto) 0.7 10^3/uL (0.2-0.9) 06/27/25 11:05 Eos # (Auto) 0.3 10^3/uL (0.0-0.8) 06/27/25 11:05 Baso # (Auto) 0.1 10^3/uL (0.0-0.1) 06/27/25 11:05 Nucleated RBC % (auto) 0 % 06/27/25 11:05 Nucleated RBCs # 0.0 /100WBC 06/27/25 11:05 PT 12.70 SECONDS (12.1-14.9) 06/27/25 11:05 INR 0.89 (0.8-1.2) 06/27/25 11:05 APTT 28.4 SECONDS (23.9-36.7) 06/27/25 11:05 Sodium 135 mmol/L (136-145) L 06/27/25 11:05 Potassium 5.0 mmol/L (3.5-5.1) 06/27/25 11:05 Chloride 99 mmol/L (98-107) 06/27/25 11:05 Carbon Dioxide 24 mmol/L (22-29) 06/27/25 11:05 Anion Gap 17.0 (5-19) 06/27/25 11:05 BUN 5 mg/dL (6-20) L 06/27/25 11:05 Creatinine 0.5 mg/dL (0.7-1.2) L 06/27/25 11:05 GFR Calculation 172.0 mL/min (90-130) H 06/27/25 11:05 Glucose 86 mg/dL (65-115) 06/27/25 11:05 Calculated Osmolality 277 mOsm/kg (285-295) L 06/27/25 11:05 Calcium 9.1 mg/dL (8.5-10.5) 06/27/25 11:05 Total Bilirubin 0.4 mg/dL (0.15-1.2) 06/27/25 11:05 AST 111 U/L (0-40) H 06/27/25 11:05 ALT 63 U/L (0-41) H 06/27/25 11:05 Alkaline Phosphatase 83 U/L (40-130) 06/27/25 11:05 Troponin T Baseline 10 ng/L (0-15) 06/27/25 11:05 NT-Pro-B Natriuret Pep 268 pg/mL (0-125) H 06/27/25 11:05 Total Protein 7.8 g/dL (6.6-8.7) 06/27/25 11:05 Albumin 3.9 g/dL (3.5-5.2) 06/27/25 11:05 Globulin 3.9 g/dL (1.3-4.6) 06/27/25 11:05 Procalcitonin 0.07 ng/mL (0-0.5) 06/27/25 11:05 All radiology interpretation(s) finalized by discharge Discharge Plan Discharge Patient Disposition: Admitted As Inpatient Admit Provider: Erickson Burgess Clinical Impression: Dyspnea, Myocardial ischemia determined by electrocardiography Condition: Stable Coding Level of Care Code ED Home Improvement Contractor for Chg Fwd Documented by User: Jose A Jc DO 06/27/25 14:48 HPI - SOB/Dyspnea General: Chief Complaint: General Medical Stated Complaint: rash/leg swelling Time Seen by Provider: 06/27/25 10:39 History of Present Illness: HPI Narrative: 54-year-old male presents to the emergency room from [place] clinic some rash and swelling to his lower legs they done an EKG where some concerns of new findings he was directed to the emergency room on arrival here he has no chest pain although he has been having chest pain intermittently for at least the last 1 to 2 weeks he will describe it more as feeling short of breath with exertion and a heavy sensation in his chest that goes away after about 10 minutes today's episode was more intense and actually was chest pain per his description. He is pain-free now. He said these episodes have become more more intense with exertion and still resolved after rest of about 10 minutes. No previous cardiac history no previous arrhythmias no previous cardiac stress testing of any sort. Patient does smoke he is not diabetic Associated symptoms: Reports chest pain (Resolved at the time of exam); Deny abdominal pain or fever(s) Related Data Home Medications ?Medication ?Instructions ?Recorded ?Confirmed albuterol-budesonide 1 - 2 inh inhalation DAILY PRN 02/11/25 03/25/25 Shortness Of Breath Or Wheezing gabapentin 300 mg PO 3XD PRN Pain 02/11/25 03/25/25 ibuprofen 800 mg tablet 800 mg PO Q8H 02/11/25 03/25/25 cholecalciferol (vitamin D3) 25 25 mcg PO DAILY 03/05/25 03/25/25 mcg (1,000 unit) capsule (Vitamin D3) fluticasone 250 mcg-salmeterol 50 1 inh inhalation BID 03/05/25 03/25/25 mcg/dose blistr powdr for inhalation multivitamin 1 cap PO 1XD 03/05/25 03/25/25 Previous Rx's ?Medication ?Instructions ?Recorded ondansetron 8 mg disintegrating 8 mg PO Q8H PRN nausea and 02/14/25 tablet vomiting #3 tabs Allergies Allergy/AdvReac Type Severity Reaction Status Date / Time No Known Allergies Allergy Verified 06/27/25 10:37 Review of Systems Const: Denies: fever(s) or chills Card: Reports: chest pain (Resolved at the time of exam) Resp: Reports: dyspnea GI: Denies: abdominal pain : Denies: dysuria, urinary frequency or urinary urgency Musc: Denies: neck pain or back pain Skin/Breast: Denies: rash PFSH ED PFSH: Social History Smoking and tobacco/nicotine status: current every day tobacco/nicotine user (1 /2- 2 PPD) Physical Exam Const: GENERAL APPEARANCE: cooperative ORIENTATION/CONSCIOUSNESS: Yes awake, Yes oriented to person, Yes oriented to place and Yes oriented to time HENMT: COMMON NORMALS: normocephalic, atraumatic and hearing grossly normal bilaterally HEAD & SCALP: normocephalic and atraumatic Resp: COMMON NORMALS: normal respiratory effort, No retractions, No use of accessory muscles and clear to auscultation bilaterally AUSCULTATION: clear to auscultation bilaterally Cardio: COMMON NORMALS: regular rate, regular rhythm and No murmurs present (Cardio) RATE: regular rate RHYTHM: regular rhythm GI: COMMON NORMALS: Soft to palpation and No hepatosplenomegaly present AUSCULTATION: Yes normoactive bowel sounds PALPATION: Yes Soft to palpation, No Tenderness to palpation present (GI), No Guarding due to palpation present (GI) and Yes No hepatosplenomegaly present Extremity: COMMON NORMALS: normal to inspection, capillary refill normal, no clubbing, cyanosis or edema, no calf tenderness and no pedal edema Neuro: SENSORIUM/ORIENTATION: Yes oriented to person, Yes oriented to place and Yes oriented to time Skin: COMMON NORMALS: no rashes or lesions noted GENERAL SKIN EXAM: no rashes or lesions noted Course Vital Signs: Vital signs: Vital Signs Temperature 97.9 F 06/27/25 10:32 Pulse Rate 72 06/27/25 14:12 Respiratory Rate 18 06/27/25 12:25 Blood Pressure 161/97 06/27/25 14:12 Pulse Oximetry 99 06/27/25 14:12 Oxygen Delivery Me thod Room Air 06/27/25 12:25 MDM - SOB/Dyspnea Medical Decision Making Patient has essentially escalating angina. Is asymptomatic this time but his EKG changes are concerning. His history is equally concerning. Discussed with Dr. Dyer reviewed the EKG with him. There are criteria for ST elevation with Dr. Dyer feel since there are Q waves present as well as the fact the patient is not currently having chest pain he does not believe this is a STEMI suspect this is a resolving STEMI this probably happened recently. He recommends anticoagulation with a heparin drip weight-based and will admit to the hospitalist and they will consult anticipating cardiac catheterization. Lab Data I reviewed the patient's lab results. 06/27/25 11:05 06/27/25 11:05 Labs/Radiology: Radiology Impressions Chest X-Ray 06/27/25 10:50 IMPRESSION: No acute findings. Laboratory Results WBC 6.60 10^3/uL (3.29-11.43) 06/27/25 11:05 RBC 4.34 10^6/uL (3.85-5.65) 06/27/25 11:05 Hgb 14.90 g/dL (11.27-16.99) 06/27/25 11:05 Hct 44.4 % (37-53) 06/27/25 11:05 MCV 102.3 fl (82-101) H 06/27/25 11:05 MCH 34.3 pg (27-33) H 06/27/25 11:05 MCHC 33.6 g/dL (30-55) 06/27/25 11:05 RDW 12.7 % (12.1-15.1) 06/27/25 11:05 Plt Count 234 10^3/cmm (157-399) 06/27/25 11:05 MPV 8.3 fL (7.4-10.4) 06/27/25 11:05 Neut % (Auto) 52.5 % 06/27/25 11:05 Lymph % (Auto) 31.5 % 06/27/25 11:05 [place] % (Auto) 11.2 % 06/27/25 11:05 Eos % (Auto) 3.8 % 06/27/25 11:05 Baso % (Auto) 0.8 % 06/27/25 11:05 Neut # (Auto) 3.47 10^3/uL (1.8-7.7) 06/27/25 11:05 Lymph # (Auto) 2.1 10^3/uL (0.8-4.8) 06/27/25 11:05 [place] # (Auto) 0.7 10^3/uL (0.2-0.9) 06/27/25 11:05 Eos # (Auto) 0.3 10^3/uL (0.0-0.8) 06/27/25 11:05 Baso # (Auto) 0.1 10^3/uL (0.0-0.1) 06/27/25 11:05 Nucleated RBC % (auto) 0 % 06/27/25 11:05 Nucleated RBCs # 0.0 /100WBC 06/27/25 11:05 PT 12.70 SECONDS (12.1-14.9) 06/27/25 11:05 INR 0.89 (0.8-1.2) 06/27/25 11:05 APTT 28.4 SECONDS (23.9-36.7) 06/27/25 11:05 Sodium 135 mmol/L (136-145) L 06/27/25 11:05 Potassium 5.0 mmol/L (3.5-5.1) 06/27/25 11:05 Chloride 99 mmol/L (98-107) 06/27/25 11:05 Carbon Dioxide 24 mmol/L (22-29) 06/27/25 11:05 Anion Gap 17.0 (5-19) 06/27/25 11:05 BUN 5 mg/dL (6-20) L 06/27/25 11:05 Creatinine 0.5 mg/dL (0.7-1.2) L 06/27/25 11:05 GFR Calculation 172.0 mL/min (90-130) H 06/27/25 11:05 Glucose 86 mg/dL (65-115) 06/27/25 11:05 Calculated Osmolality 277 mOsm/kg (285-295) L 06/27/25 11:05 Calcium 9.1 mg/dL (8.5-10.5) 06/27/25 11:05 Total Bilirubin 0.4 mg/dL (0.15-1.2) 06/27/25 11:05 AST 111 U/L (0-40) H 06/27/25 11:05 ALT 63 U/L (0-41) H 06/27/25 11:05 Alkaline Phosphatase 83 U/L (40-130) 06/27/25 11:05 Troponin T Baseline 10 ng/L (0-15) 06/27/25 11:05 NT-Pro-B Natriuret Pep 268 pg/mL (0-125) H 06/27/25 11:05 Total Protein 7.8 g/dL (6.6-8.7) 06/27/25 11:05 Albumin 3.9 g/dL (3.5-5.2) 06/27/25 11:05 Globulin 3.9 g/dL (1.3-4.6) 06/27/25 11:05 Procalcitonin 0.07 ng/mL (0-0.5) 06/27/25 11:05 EKG Data EKG 1: Interpretation: EKG 06/27/2025 sinus rhythm rate of 70 DE interval 135 QTc 435. There are Q waves with subtle ST elevation in 2 3 and aVF marked Q waves in V23 and 4. There is ST inversion in V1 through 5. Discharge Plan Discharge Patient Disposition: Admitted As Inpatient Admit Provider: Erickson Burgess Clinical Impression: Dyspnea, Myocardial ischemia determined by electrocardiography Condition: Stable Coding Level of Care Code ED Home Improvement Contractor for Krystal Diggs
--- NOTE | 2025-06-27 11:07 | ECG_ITS ---
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
[2025-06-27 11:09] LABS: Hematocrit 44.4 % (37-53); Hemoglobin 14.90 g/dL (11.27-16.99); Mean Corpuscular HGB Conc 33.6 g/dL (30-55); Mean Corpuscular Hemoglobin 34.3 pg (27-33); Mean Corpuscular Volume 102.3 fl (82-101); Nucleated Red Blood Cells % 0 %; Platelet Count 234 10^3/cmm (157-399); Red Blood Count 4.34 10^6/uL (3.85-5.65); White Blood Count 6.60 10^3/uL (3.29-11.43)
[2025-06-27 11:33] LABS: Troponin(5th) Baseline 10 ng/L (0-15)
[2025-06-27 11:41] LABS: NT Pro B Type Natriuretic Pept 268 pg/mL (0-125); Procalcitonin 0.07 ng/mL (0-0.5)
[2025-06-27 11:52] LABS: Alanine Aminotransferase 63 U/L (0-41); Albumin Level 3.9 g/dL (3.5-5.2); Alkaline Phosphatase 83 U/L (40-130); Anion Gap 17.0 (5-19); Aspartate Amino Transferase 111 U/L (0-40); Blood Urea Nitrogen 5 mg/dL (6-20); Calcium 9.1 mg/dL (8.5-10.5); Carbon Dioxide 24 mmol/L (22-29); Chloride 99 mmol/L (98-107); Creatinine Clr Calc Pharmacy 140.7653; Globulin 3.9 g/dL (1.3-4.6); Glucose 86 mg/dL (65-115); Osmolality Calculated 277 mOsm/kg (285-295); Potassium 5.0 mmol/L (3.5-5.1); Sodium 135 mmol/L (136-145); Total Protein 7.8 g/dL (6.6-8.7)
[2025-06-27] MEDS: heparin drip 25,000 UNIT/500 ML PREMIX 17 UNIT IV (11:53)
[2025-06-27] MEDS: heparin 5,000 unit/mL INJ 1 mL IVP (11:54)
--- NOTE | 2025-06-27 12:17 | P.CONIM_ITS ---
<Statement entered by Ace Dyer M.D - 07/01/25 07:50> Patient was evaluated and cared for in conjunction with an advanced practice practitioner.? I personally examined the patient and reviewed the chart and all pertinent data including imaging, telemetry, and laboratory results.? I discussed the patient in detail with the advanced practice practitioner.? Please see? their note for complete consult note, testing results and agreed upon plan of care for the patient. GENERAL: Patient is alert, awake and oriented x3. HEART: Regular S1 and S2 LUNGS: Diminished air entry bilaterally CENTRAL NERVOUS SYSTEM: Grossly nonfocal. EXTREMITIES: Lower extremities without edema bilaterally. Providers/Reason For Consult 2 Consulting Physician/Specialty*: Dr Dyer, cardiology Reason for Consult*: Abnormal EKG Requesting Physician: Dr. Jc Primary Care Provider: SUDARSHAN Heath History of Present Illness History of Present Illness Bryce Blackwood is a 54 year old male with past medical history of COPD, current smoker. He presented to the emergency room this morning from the [place] [facility] due to abnormal EKG. EKG here in the emergency room shows anterior SC with Q waves present. He has had a rash that began on the feet about a month ago he has been putting steroid ointment on it and has been progressively getting worse now covering his legs and his arms sparing the trunk. He reports sporadic lower extremity edema previously but now for the last week his legs have become swollen without improvement. On further questioning he has had exertional angina for the last year, present in the anterior chest substernal, lasting approximately 1 minute in duration, accompanied by shortness of breath, resolving with rest, no radiation of pain, no nausea vomiting or diaphoresis-he did not realize that this was cardiac related. He has never taken nitroglycerin, no previous history of CAD, no previous cath, stress test or echocardiogram. He denies orthopnea and abdominal distention, does not check his blood pressure at home. Here it is 165/90. He has not previously taken any cardiac medications, only albuterol for the COPD and gabapentin. Troponin series: 10. Review of Systems 2 Const: Denies: fever(s), chills, change in weight, fatigue or diaphoresis Eyes: Denies: change in vision ENMT: Denies: epistaxis Card: Reports: chest pain (With exertion), edema and dyspnea on exertion; Denies: palpitations, irregular heart rhythm, syncope, pre-syncope, orthopnea or leg pain with exertion Resp: Denies: dyspnea, productive cough or wheezing GI: Denies: nausea, vomiting, hematemesis, hematochezia or melena : Denies: hematuria Real/Lymph: Denies: easy bruising or easy bleeding Medications/Allergies Home Medications ?Medication ?Instructions ?Recorded ?Confirmed ?Last Taken ?Type ibuprofen 800 mg tablet 800 mg PO Q8H 02/11/2506/2706/27/25 History ondansetron 8 mg disintegrating 8 mg PO Q8H PRN nausea and 02/14/25 06/27/25 03/03/25 Rx tablet vomiting #3 tabs cholecalciferol (vitamin D3) 25 25 mcg PO DAILY 06/27/25 03/03/25 History mcg (1,000 unit) capsule (Vitamin D3) fluticasone 250 mcg-salmeterol 50 1 inh inhalation BID 03/05/25 06/27/25 03/03/25 History mcg/dose blistr powdr for inhalation albuterol sulfate 90 mcg/actuation 2 puff inhalation Q ID PRN 06/27/25 06/27/25 Unknown History aerosol inhaler Shortness Of Breath fluticasone propionate 50 1 spray intranasal DAILY 12/2106/27/25 Unknown History mcg/actuation nasal spray,suspension gabapentin 300 mg capsule 300 mg PO TID 06/27/2506/2706/27/25 History magnesium citrate See Rx Instructions .Route 0 06/27/25 06/27/25 Unknown History .COMPLEX PRN Constipation montelukast 10 mg tablet 10 mg PO QPM 06/27/25 Unknown History multivitamin 1 tab PO QAM 06/27/25 Unknown History Allergies Allergy/AdvReac Type Severity Reaction Status Date / Time No Known Allergies Allergy Verified 06/27/25 10:37 Current Medications Generic Name Dose Route Start Last Admin Trade Name Freq PRN Reason Stop Dose Admin Heparin Sodium/Sodium Chloride 25,000 unit in 500 mls @ 0 mls/hr 06/27/25 11:15 06/27/25 11:53 Heparin Drip IV 14.09 unit/kg/hr CONT JOAN 17 mls/hr Protocol Administration Per Protocol PFSH Acute 2 PFSH: Social History Smoking and tobacco/nicotine status: current every day tobacco/nicotine user (1 1/2- 2 PPD) Vitals/I&O/Wt Last Vital Signs Temp 97.9 F 06/27/25 10:32 Pulse 70 06/27/25 11:10 Resp 18 06/27/25 11:10 BP 165/97 06/27/25 11:10 Pulse Ox 98 06/27/25 10:32 O2 Del Method Room Air 06/27/25 10:32 06/26/25 06/27/25 06/27/25 22:59 06:59 14:59 Intake Total 0 / 0 Balance 0 / 0 Weight last 48 hrs Weight 133 lb Physical Exam 2 Narrative: He has an itchy rash on the feet, legs, hands and arms. Const: COMMON NORMALS: no acute distress and patient oriented x3 GENERAL APPEARANCE: cooperative and comfortable ORIENTATION/CONSCIOUSNESS: Yes awake, Yes oriented to person, Yes oriented to place and Yes oriented to time Chest: COMMONS NORMALS: normal inspection of the chest and normal palpation of entire chest wall CHEST: Yes Symmetrical chest wall rise Resp: COMMON NORMALS: normal respiratory effort, No retractions, No use of accessory muscles and clear to auscultation bilaterally EFFORT & INSPECTION: Yes symmetric chest movement AUSCULTATION: clear to auscultation bilaterally Cardio: COMMON NORMALS: regular rate, regular rhythm, S1 normal heart sound present, S2 normal heart sound present, No gallops present (Cardio), No clicks present (Cardio), No murmurs present (Cardio) and No rub (Cardio) RATE: r egular rate RHYTHM: regular rhythm HEART SOUNDS: S1 normal heart sound present and S2 normal heart sound present PERIPHERAL PULSES: radial pulses present Extremity: COMMON NORMALS: no pedal edema Neuro: COMMON NORMALS: patient oriented x3 and moves all extremities S ENSORIUM/ORIENTATION: Yes oriented to person, Yes oriented to place and Yes oriented to time Data 06/27/25 11:05 06/27/25 11:05 A&P Assessment and plan 1. Stable angina: 2. Myocardial ischemia determined by electrocardiography: 3. Dyspnea: Plan: History of stable angina over the last year, with new onset lower extremity edema and Q wave changes on the current EKG. He likely has had a recent SC. Continue heparin infusion, we will plan for coronary angiogram tomorrow around 1000. N.p.o. after midnight tonight. Risks and benefits to the procedure have been discussed with the patient in detail. He is in agreement to proceed. Continue to trend troponin and EKGs. If he develops recurrence of chest pain can start on nitroglycerin infusion. PDMP PDMP Reviewed: Not Reviewed Coding Level of Care Code Acute Code for g Fwd Diagnoses Stable angina I20.89 Myocardial ischemia determined by electrocardiography I25.9 Dyspnea R06.00
[2025-06-27 12:46] LABS: INR 0.89 (0.8-1.2); Prothrombin Time 12.70 SECONDS (12.1-14.9)
[2025-06-27 12:47] LABS: Partial Thromboplastin Time 28.4 SECONDS (23.9-36.7)
--- NOTE | 2025-06-27 13:07 | ECG_ITS ---
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1970 Requested By: Selene You Order Number: [id number] Reading MD: SONIA BEARD Measurements Intervals [place] Rate: 66 P: 68 [place]: 140 QRS: 67 QRSD: 96 T: 74 QT: 417 QTc: 438 Interpretive Statements SINUS RHYTHM ANTERIOR MYOCARDIAL INFARCTION , PROBABLY RECENT [40+ ms Q WAVE AND/OR ST/T ABNORMALITY IN V3/V4] POSSIBLE INFERIOR MYOCARDIAL INFARCTION , OF INDETERMINATE AGE [30 ms Q WAVE IN II/aVF] Compared to ECG 06/27/2025 11:06:58 No significant changes Electronically Signed On 06-30-2025 14:12:23 CDT by SONIA BEARD [email or web address]
--- NOTE | 2025-06-27 13:20 | PC.PHAR ---
[facility] 06/27/25 1:21pm
[2025-06-27 13:40] LABS: Troponin 5 2HR 7.83 ng/L (0-15)
[2025-06-27 13:42] LABS: Troponin 5 2HR Delta -2.17 ABS# (0-10)
--- NOTE | 2025-06-27 17:39 | PM.HP ---
Providers/Chief Complaint Admitting Physician: Erickson Burgess MD Primary Care Provider: SUDARSHAN Heath Chief Complaint: rash/leg swelling History of Present Illness Bryce Blackwood is a 54 year old male with history of tobacco abuse went to the [place] clinic today because he has this rash that has been going on for a month started on the bottom of his feet and hands spread to his arms torso is not involved mildly itchy only patient denies any new medicines. Patient Nu[place] fevers chills weight gain weight loss Patient had an EKG done working up dyspnea on exertion found to have anterolateral T wave inversions V1 through V5 with poor R wave progression V1 through V5 and inferior Q waves 2-3 aVF consistent with old anterior AR as well as old inferior AR. Patient smokes a pack and 1/2 to 2 packs/day he has been using inhalers for 2 years but did not have asthma as a kid states he had abnormal pulmonary function test. Review of Systems Narrative: General no fevers chills weight gain weight loss Skin rashes Neuse never had psoriasis before he had right knee surgery after fall and fracture but it has not been infected chronically. Cardiovascular he has dyspnea on exertion with stairs and a heaviness on his chest but not exactly pain. This has been going on since October 2024 Respiratory he does have wheezing and uses inhaler which helps. He had pulmonary function test with reversibility and was put on disability Medications/Allergies Home Medications ?Medication ?Instructions ?Recorded ?Confirmed ?Last Taken ?Type ibuprofen 800 mg tablet 800 mg PO Q8H 02/11/25 06/27/25 06/27/25 History ondansetron 8 mg disintegrating 8 mg PO Q8H PRN nausea and 02/14/25 06/27/25 03/03/25 Rx tablet vomiting #3 tabs cholecalciferol (vitamin D3) 25 25 mcg PO DAILY 03/05/25 06/27/25 03/03/25 History mcg (1,000 unit) capsule (Vitamin D3) fluticasone 250 mcg-salmeterol 50 1 inh inhalation BID 03/05/25 06/27/25 03/03/25 History mcg/dose blistr powdr for inhalation albuterol sulfate 90 mcg/actuation 2 puff inhalation QID PRN 06/27/25 06/27/25 Unknown History aerosol inhaler Shortness Of Breath fluticasone propionate 50 1 spray intranasal DAILY 06/27/25 06/27/25 Unknown History mcg/actuation nasal spray,suspension gabapentin 300 mg capsule 300 mg PO TID 06/27/25 06/27/25 06/27/25 History magnesium citrate See Rx Instructions .Route 06/27/25 06/27/25 Unknown History .COMPLEX PRN Constipation montelukast 10 mg tablet 10 mg PO QPM 06/27/25 06/27/25 Unknown History multivitamin 1 tab PO QAM 06/27/25 06/27/25 Unknown History Allergies Allergy/AdvReac Type Severity Reaction Status Date / Time No Known Allergies Allergy Verified 06/27/25 10:37 PFSH Acute PFSH: Medical History (Updated 06/27/25 @ 17:51 by Erickson Burgess MD) COPD (chronic obstructive pulmonary disease) Social History (Updated 06/27/25 @ 17:45 by Erickson Burgess MD) Smoking and tobacco/nicotine status: current every day tobacco/nicotine user (1 1/2- 2 PPD) Additional social history: He wants full code as discussed today with Erickson Burgess MD on 06/27/2025. 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 Mom had adopted patient's older brother's autistic son after brother put this autistic son (patient's nephew) into a halfway. 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 Vitals/I&O/Wt Last Vital Signs Temp 98.1 F 06/27/25 16:08 Pulse 90 06/27/25 16:08 Resp 17 06/27/25 16:08 BP 138/88 06/27/25 16:08 Pulse Ox 98 06/27/25 16:08 O2 Del Method Room Air 06/27/25 16:08 06/27/25 06/27/25 06/27/25 06:59 14:59 22:59 Intake Total 0 / 0 Balance 0 / 0 Weight last 48 hrs Weight 61.462 kg Weight 60.328 kg Physical Exam Narrative: General well-developed well-nourished male thin no acute cardiopulmonary stress CV regular rate and rhythm Lungs clear to auscultation bilaterally moderate air movement no wheezes no crackles Abdomen positive bowel tones soft nontender Calves no tenderness cords pretibial edema feet minimally puffy Skin with erythematous rash scaly specially on the soles of the feet flaky no significant excoriation see images Skin: NARRATIVE SKIN EXAM: Data 06/27/25 11:05 06/27/25 11:05 A&P Assessment and plan 1. Coronary artery disease: Patient with myocardial infarction in anterior and inferior distribution by EKG. He has ongoing predictable exertional angina 2. COPD (chronic obstructive pulmonary disease): COPD due to smoking. Patient was counseled regarding need for smoking cessation is interested in nicotine patch 3. Rash and other nonspecific skin eruption: Looks atypical but likely psoriasis. 4. Stable angina: Was admitted at the request of cardiology for selective coronary angiogram and probable PTCA and stent PDMP PDMP Reviewed: Not Reviewed Attestations Medical Necessity Statement*: Patient admitted to hospital for intended selective coronary angiogram PTCA and stent in the morning Coding Level of Care Code 92104 Diagnoses Coronary artery disease I25.10 COPD (chronic obstructive pulmonary disease) J44.9 Rash and other nonspecific skin eruption R21 Stable angina I20.89 Time Spent (min) 70
--- NOTE | 2025-06-27 17:47 | ECG_ITS ---
[employer] Test Date: 2025-06-27 Pat Name: Bryce Blackwood Department: Room: 108 Gender: Male Guide Domestic Tour: : 1970 Requested By: Selene You Order Number: [id number] Reading MD: SONIA BEARD Measurements Intervals Ware Rate: 70 P: 65 RI: 142 QRS: 86 QRSD: 90 T: 77 QT: 409 QTc: 444 Interpretive Statements SINUS RHYTHM ANTERIOR MYOCARDIAL INFARCTION , PROBABLY RECENT [40+ ms Q WAVE AND/OR ST/T ABNORMALITY IN V3/V4] ACUTE DC Compared to ECG 06/27/2025 13:07:11 No significant changes Electronically Signed On 06-30-2025 14:10:44 CDT by SONIA BEARD [email or web address]
[2025-06-27 18:20] LABS: Partial Thromboplastin Time 43.7 SECONDS (23.9-36.7)
[2025-06-27 19:08] LABS: Troponin 5 6HR 8.10 ng/L (0-15)
[2025-06-27 19:10] LABS: Troponin 5 6HR Delta -1.90 ng/L (0-12)
[2025-06-27] MEDS: morphine 4 mg/mL SDV 1 mL IVP (22:02)
[2025-06-28] VITALS (10 sets, daily range): BP systolic 107–142; BP diastolic 75–90; PULSE 60–91; RESP 14–20; TEMP 36.5–36.7; O2SAT 95–99
[2025-06-28 01:06] LABS: Partial Thromboplastin Time 53.9 SECONDS (23.9-36.7)
[2025-06-28] MEDS: heparin 5,000 unit/mL INJ 1 mL IVP (01:46)
[2025-06-28 08:09] LABS: Partial Thromboplastin Time 63.8 SECONDS (23.9-36.7)
--- NOTE | 2025-06-28 09:46 | USCV_ITS ---
Bryec Blackwood Age: 54 Gender: M : 1970 Exam Date: 06/28/2025 11:20 Ordering Phys: Ace Dyer M.D ([email or web address]) Technologist: Rayray Kumar [place] [facility] [place]: chf BP: 107 / 75 HR: 56 Rhythm: Sinus Technical Quality: Adequate MEASUREMENTS (Male / Female) Normal Values 2D ECHO LVOT Diameter 2.0 cm LV Ejection Fraction MOD 4C 49.8 % LV Ejection Fraction MOD 2C 39.3 % LV Ejection Fraction 2C AL 40.0 % LA Diameter 3.3 cm RA Systolic Volume 4C AL 30.6 ml RA Systolic Volume 4C MOD 29.7 ml LA Sys Volume AL 41.3 cm cubed LA Sys Volume Index AL 19.5 cm cubed/m squared Aorta at Sinotubular Diameter 2.6 cm IVC Diameter 1.7 cm M-MODE LA Ao Ratio MM 1.3 AV Cusp Separation MM 1.5 cm DOPPLER AV Peak Velocity 101.0 cm/s LVOT Peak Velocity 66.0 cm/s AV Area Cont Eq vti 2.1 cm squared AV Area Cont Eq pk 2.1 cm squared MV Peak Velocity 55.0 cm/s MV Area PHT 5.5 cm squared Mitral E to A Ratio 0.8 TV Peak Velocity 289.5 cm/s TR Peak Velocity 314.0 cm/s TR Peak Gradient 39.4 mmHg TR Mean Velocity 229.0 cm/s TR Mean Gradient 21.3 mmHg TR Velocity Time Integral 81.5 cm PV Peak Velocity 72.0 cm/s RV Ejection Time 0.3 s FINDINGS Left Ventricle Left ventricle is normal in size. LV systolic function is mild to moderately reduced with EF of 40-45%. 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 Grade 1 diastolic function. Right Ventricle Normal in size and function Right Atrium Normal in size Left Atrium Normal in size Mitral Valve Structurally normal mitral valve. Trace mitral regurgitation. Aortic Valve Aortic valve is thickened. No stenosis. Trace aortic regurgitation. Tricuspid Valve Mild tricuspid regurgitation. RVSP is 35 to 40 mmHg. This is consistent with moderate pulmonary hypertension. Pulmonic Valve Not well visualized Pericardium Normal Aorta Normal in size IVC Appears to be normal CONCLUSIONS LV systolic function is mild to moderately reduced with EF of 40-45%. 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 Grade 1 diastolic dysfunction Trace mitral regurgitation Trace aortic regurgitation Mild tricuspid regurgitation Moderate pulmonary hypertension No comparison studies are available. Ace Dyer MD (Electronically Signed) Final Date: 28 June 2025 14:27 S
--- NOTE | 2025-06-28 09:47 | W.PM.OPSUD ---
Surgery/Procedure H&P Update DATE OF PROCEDURE: June 28, 2025 DATE H&P PERFORMED: 06/27/25 H&P UPDATE INFORMATION: I have reviewed H&P completed within last 30 days, I have examined patient prior to procedure and No changes to prior documentation CHANGES TO PREVIOUS DOCUMENTATION: Patient has been having worsening exertional chest discomfort episodes. EKG demonstrating Q waves with ischemic changes in anterior and inferolateral leads. PREOP DIAGNOSIS: Chest pain/ EKG abnormalities/ Congestive heart failure PRIMARY INDICATION FOR PROCEDURE: Chest pain/ EKG abnormalities/ Congestive heart failure PLANNED PROCEDURE: Operation Date: 06/28/25 09:00 Proposed Procedures p Cardiac Catheterization(Left) - Ace Dyer M.D Possible percutaneous coronary intervention PATIENT REASSESSED PRIOR TO SEDATION, WITH NO CHANGE NOTED: Yes PHYSICAL EXAM: alert, oriented x 3, clear to auscultation bilaterally and regular rate & rhythm AIRWAY EVAL/ANESTHESIA PLAN: normal airway, ASA III, Local Anesthesia, Risks, benefits & alternatives of sedation and/or procedure discussed and Patient agrees to continue as planned ADDITIONAL INFORMATION: Moderate sedation
--- NOTE | 2025-06-28 10:27 | PM.PROC ---
Procedure Note: Date of procedure: 06/28/25 Pre-procedure diagnosis: Chest pain/ Congestive heart failure/ abnormal EKG Post-procedure diagnosis: other (Mid LAD has chronic total occlusion with bridging collateral and VITO 1 flow. ) Procedure: Mid LAD is totally occluded with bridging collateral and VITO 1 flow. This is secondary to old WI. EKG showing Q waves. Obtain echocardiogram. Guideline directed heart failure therapy Continue aspirin. Start atorvastatin therapy Performing Provider: Ace Dyer Estimated blood loss (mL): 5 Complications: None Condition: stable Disposition: floor Coding Level of Care Code Acute Code for [facility] Fwd
--- NOTE | 2025-06-28 10:44 | PC.NURSE ---
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 Report taken from Jarod Pickard RN. Patient comfortable in bed with TR band in place. No hematoma present upon arrival to the floor. TR band with 13ml of air instilled.
--- NOTE | 2025-06-28 11:57 | P.PN_ITS ---
Subjective 2 Subjective: 54-year-old male with recent M I with EKG showing recent but not acute OR had negative cardiac enzymes. His angiogram showed mid LAD stenosis/occlusion with bridging collateral. I spoke with Dr. Dyer who recommends echo to see if patient requires a LifeVest. Patient is okay to have heparin drip discontinued Vitals/I&O/Wt Last Vital Signs Temp 97.9 F 06/28/25 07:30 Pulse 64 06/28/25 11:14 Resp 15 06/28/25 11:14 BP 107/75 06/28/25 11:14 Pulse Ox 96 06/28/25 11:14 O2 Del Method Room Air 06/28/25 10:45 06/27/25 06/28/25 06/28/25 22:59 06:59 14:59 Intake Total 128.067 / 128.067 120.967 / 249.034 Output Total 1000 / 1000 500 / 1500 Balance -871.933 / -871.933 -379.033 / -1250.966 Weight last 48 hrs Weight 59.965 kg Weight 61.462 kg Weight 60.328 kg Physical Exam 2 Narrative: General well-developed well-nourished male thin no acute cardiopulmonary stress CV regular rate and rhythm Lungs clear to auscultation bilaterally moderate air movement no wheezes no crackles Right wrist with post angiogram pressure dressing Data 06/27/25 11:05 06/27/25 11:05 A&P Assessment and plan 1. Coronary artery disease: Patient with myocardial infarction in anterior and inferior distribution by EKG. He has ongoing predictable exertional angina. Mid LAD chronic total occlusion with some collaterals. No further intervention recommended and patient will be on medical management with possibility of needing a LifeVest depending on echo EF and telemetry 2. COPD (chronic obstructive pulmonary disease): COPD due to smoking. Patient was counseled regarding need for smoking cessation is interested in nicotine patch Patient started nicotine patch and states he intends to quit smoking 3. Rash and other nonspecific skin eruption: Looks atypical but likely psoriasis. I curb sided dermatology and recommended for clobetasol ointment pending biopsies. I counseled the patient regarding this and he wants to proceed with clobetasol and will seek skin biopsies at the [facility] 4. 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 Anticipate low-dose beta-william if blood pressure and pulse recover. Is soft this morning post procedure PDMP PDMP Reviewed: Not Reviewed Attestations 2 Medical Necessity Statement*: Patient was monitored in the hospital overnight for echocardiogram and antianginal titration Coding Level of Care Code 22364 Diagnoses Coronary artery disease I25.10 COPD (chronic obstructive pulmonary disease) J44.9 Rash and other nonspecific skin eruption R21 Stable angina I20.89 Time Spent (min) 35
--- NOTE | 2025-06-28 13:40 | P.PN_ITS ---
Subjective 2 Subjective: Patient is doing well. no chest pain. Cardiac catheterization showed totally occluded LAD in the midsegment with bridging collateral. Vitals/I&O/Wt Last Vital Signs Temp 97.9 F 06/28/25 07:30 Pulse 64 06/28/25 11:14 Resp 15 06/28/25 11:14 BP 107/75 06/28/25 11:14 Pulse Ox 96 06/28/25 11:14 O2 Del Method Room Air 06/28/25 10:45 06/27/25 06/28/25 06/28/25 22:59 06:59 14:59 Intake Total 128.067 / 128.067 120.967 / 249.034 480 / 480 Output Total 1000 / 1000 500 / 1500 Balance -871.933 / -871.933 -379.033 / -1250.966 480 / 480 Weight last 48 hrs Weight 132 lb 3.2 oz Weight 135 lb 8 oz Weight 133 lb Physical Exam 2 Narrative: GENERAL: Patient is alert, awake and oriented x3. [] NECK: No jugular vein distension. [] HEENT: No cyanosis. No icterus. No pallor. [] HEART: Regular S1 and S2. No murmur, rub or gallop. [] LUNGS: Clear to auscultate bilaterally. [] CENTRAL NERVOUS SYSTEM: Grossly nonfocal. [] EXTREMITIES: Lower extremities with 1+ edema bilaterally. Data 06/29/25 03:30 06/27/25 11:05 A&P Assessment and plan 1. Myocardial ischemia determined by electrocardiography: 2. Dyspnea: 3. Chest pain: Plan: Patient had coronary angiogram that demonstrated total occlusion of the mid LAD. Bridging collateral seen with VITO I flow. Echo shows akinetic apical wall. Overall EF is mild to moderately reduced with EF of 40%. We will observe patient today and tomorrow can be discharged home on aspirin, metoprolol, atorvastatin and low dose lasix Thank you for involving us with care of this patient. Please call with questions. PDMP PDMP Reviewed: Not Reviewed Attestations 2 Medical Necessity Statement*: Care expected to cross 2 midnights. Coding Level of Care Code Acute Code for [facility] Fwd Diagnoses Myocardial ischemia determined by electrocardiography I25.9 Dyspnea R06.00 Chest pain R07.9
[2025-06-29 03:32] VITALS: BP 126/75; PULSE 73; RESP 26; TEMP 36.4; O2SAT 98
[2025-06-29 04:10] LABS: Platelet Count 190 10^3/cmm (157-399)
[2025-06-29 07:40] VITALS: BP 128/77; PULSE 71; RESP 19; TEMP 36.6; O2SAT 96
--- NOTE | 2025-06-29 07:58 | PM.PN ---
Subjective Subjective: Patient is doing well. no chest pain. Vitals/I&O/Wt Last Vital Signs Temp 97.9 F 06/29/25 07:40 Pulse 71 06/29/25 07:40 Resp 19 H 06/29/25 07:40 BP 128/77 06/29/25 07:40 Pulse Ox 96 06/29/25 07:40 O2 Del Method Room Air 06/29/25 03:32 06/28/25 06/29/25 06/29/25 22:59 06:59 14:59 Intake Total 1110.966 / 7536.073 3073 / 2590.966 Output Total 500 / 500 350 / 850 Balance 610.966 / 1090.966 650 / 1740.966 Weight last 48 hrs Weight 133 lb 4.8 oz Weight 132 lb 3.2 oz Weight 135 lb 8 oz Weight 133 lb Physical Exam Narrative: GENERAL: Patient is alert, awake and oriented x3. [] NECK: No jugular vein distension. [] HEENT: No cyanosis. No icterus. No pallor. [] HEART: Regular S1 and S2. No murmur, rub or gallop. [] LUNGS: Clear to auscultate bilaterally. [] CENTRAL NERVOUS SYSTEM: Grossly nonfocal. [] EXTREMITIES: Lower extremities with 1+ edema bilaterally. Data 06/29/25 03:30 06/27/25 11:05 A&P Assessment and plan 1. Myocardial ischemia determined by electrocardiography: 2. Dyspnea: 3. Chest pain: 4. Coronary artery disease: 5. Ischemic cardiomyopathy: Plan: Medical therapy for CAD. Patient can be discharged home on aspirin, statin, metoprolol and Lasix. Follow-up with cardiology as outpatient. PDMP PDMP Reviewed: Not Reviewed Attestations Medical Necessity Statement*: Care expected to cross 2 midnights. Coding Level of Care Code Acute Code for [facility] Fw Diagnoses Myocardial ischemia determined by electrocardiography I25.9 Dyspnea R06.00 Chest pain R07.9 Coronary artery disease I25.10 Ischemic cardiomyopathy I25.5
[2025-06-29] MEDS: metoprolol succinate ER (24 HR) 25 mg Tablet PO (09:16)
[2025-06-29 09:28] VITALS: PULSE 71; RESP 18; O2SAT 96
[2025-06-29] MEDS: betamethasone 0.05% Cream 15 gm 1 APPLIC TOPICAL (09:32)
--- NOTE | 2025-06-29 13:10 | P.DS_ITS ---
Discharge Providers Date of Admission: 06/27/25 13:00 Date of Discharge: June 29, 2025 Attending Provider at Admission: Erickson Burgess MD Attending Provider at Discharge: Erickson Burgess MD Primary Care Provider: SUDARSHAN Heath Diagnoses at Discharge Discharge Diagnosis 1. Myocardial ischemia determined by electrocardiography: Details from hospital stay: Patient admitted with recent angina present since October but worsening recently and EKG showing recent AL. Echo showed LV systolic function is mild to moderately reduced with EF of 40-45%. 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 Grade 1 diastolic dysfunction Trace mitral regurgitation Trace aortic regurgitation Mild tricuspid regurgitation Moderate pulmonary hypertension No comparison studies are available. Patient underwent selective coronary angiogram showing Mid LAD is totally occluded with bridging collateral and VITO 1 flow. This is secondary to old AL. EKG showing Q waves. By Dr. Dyer on 07-21 2. Dyspnea: Details from hospital stay: Improved and start antianginal Started on furosemide 20 mg daily potassium was not supplemented due to admit potassium of 5. [place] [facility] 3. COPD (chronic obstructive pulmonary disease): Details from hospital stay: Resume home inhalers. Discontinue smoking 4. Rash and other nonspecific skin eruption: Details from hospital stay: Consistent with psoriasis but somewhat atypical. Will treat with Diprolene AF ointment. Follow-up with your PCP for skin biopsy. Recommend stopping ibuprofen to see if that has impact on the rash Reason for Visit Reason for Visit: rash/leg swelling Brief History: Bryce Blackwood is a 54 year old male with history of tobacco abuse went to the [facility] today because he has this rash that has been going on for a month started on the bottom of his feet and hands spread to his arms torso is not involved mildly itchy only patient denies any new medicines. 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 Patient smokes a pack and 1/2 to 2 packs/day he has been using inhalers for 2 years but did not have asthma as a kid states he had abnormal pulmonary function test. Hospital Course Hospital Course Patient had an echo showing apical wall motion abnormality and LVEF around 45%. He had selective coronary angiogram showing occluded mid LAD but not appropriate for attempts at revascularization due to bridging collateral and duration of infarct outside of window for revascularization. Patient started on antianginals and discharged home. I counseled him regarding smoking cessation and encouraged him to start nicotine patch. I also put images of his rash in the chart and curb sided dermatology. Will treat with high potency steroid and patient should follow-up with PCP or dermatology for biopsy to look for possible psoriasis. Other possibility is that this rash is due to ibuprofen Physical Exam Narrative: General well-developed well-nourished thin male in no acute cardiopulmonary stress CV regular rate and rhythm Lungs clear to auscultation bilaterally without rales or crackles or wheezes. Air movement is moderate Abdomen positive bowel tones soft Calves no tenderness or pretibial edema Feet some edema noted 1+ to 2 bilaterally Skin shows erythematous scaly rash plaque-like but not as raised as typical psoriasis and not primarily over the extensor surfaces of the elbows or knees. Torso is spared see images from admit H&P Discharge Data Studies Completed and Pending Completed Studies During Hospitalization Category Date Time Status XR chest 1V portable [id number] Urgent Exams 06/27/25 10:50 Completed CV. echo complete* [id number] Routine Ultrasound 06/28/25 09:46 Completed Pending at discharge Category Date Time Status PIN SETTER request for service Routine Exams 06/28/25 09:00 Taken Platelet Count Q2D Lab 07/01/25 04:00 Ordered Radiology Impressions Chest X-Ray 06/27/25 10:50 IMPRESSION: No acute findings. Laboratory Results WBC 6.60 10^3/uL (3.29-11.43) 06/27/25 11:05 RBC 4.34 10^6/uL (3.85-5.65) 06/27/25 11:05 Hgb 14.90 g/dL (11.27-16.99) 06/27/25 11:05 Hct 44.4 % (37-53) 06/27/25 11:05 MCV 102.3 fl (82-101) H 06/27/25 11:05 MCH 34.3 pg (27-33) H 06/27/25 11:05 MCHC 33.6 g/dL (30-55) 06/27/25 11:05 RDW 12.7 % (12.1-15.1) 06/27/25 11:05 Plt Count 190 10^3/cmm (157-399) 06/29/25 03:30 MPV 8.3 fL (7.4-10.4) 06/27/25 11:05 Neut % (Auto) 52.5 % 06/27/25 11:05 Lymph % (Auto) 31.5 % 06/27/25 11:05 Wetzel % (Auto) 11.2 % 06/27/25 11:05 Eos % (Auto) 3.8 % 06/27/25 11:05 Baso % (Auto) 0.8 % 06/27/25 11:05 Neut # (Auto) 3.47 10^3/uL (1.8-7.7) 06/27/25 11:05 Lymph # (Auto) 2.1 10^3/uL (0.8-4.8) 06/27/25 11:05 Wetzel # (Auto) 0.7 10^3/uL (0.2-0.9) 06/27/25 11:05 Eos # (Auto) 0.3 10^3/uL (0.0-0.8) 06/27/25 11:05 Baso # (Auto) 0.1 10^3/uL (0.0-0.1) 06/27/25 11:05 Nucleated RBC % (auto) 0 % 06/27/25 11:05 Nucleated RBCs # 0.0 /100WBC 06/27/25 11:05 PT 12.70 SECONDS (12.1-14.9) 06/27/25 11:05 INR 0.89 (0.8-1.2) 06/27/25 11:05 APTT 63.8 SECONDS (23.9-36.7) H 06/28/25 07:51 Sodium 135 mmol/L (136-145) L 06/27/25 11:05 Potassium 5.0 mmol/L (3.5-5.1) 06/27/25 11:05 Chloride 99 mmol/L (98-107) 06/27/25 11:05 Carbon Dioxide 24 mmol/L (22-29) 06/27/25 11:05 Anion Gap 17.0 (5-19) 06/27/25 11:05 BUN 5 mg/dL (6-20) L 06/27/25 11:05 Creatinine 0.5 mg/dL (0.7-1.2) L 06/27/25 11:05 GFR Calculation 172.0 mL/min (90-130) H 06/27/25 11:05 Glucose 86 mg/dL (65-115) 06/27/25 11:05 Calculated Osmolality 277 mOsm/kg (285-295) L 06/27/25 11:05 Calcium 9.1 mg/dL (8.5-10.5) 06/27/25 11:05 Total Bilirubin 0.4 mg/dL (0.15-1.2) 06/27/25 11:05 AST 111 U/L (0-40) H 06/27/25 11:05 ALT 63 U/L (0-41) H 06/27/25 11:05 Alkaline Phosphatase 83 U/L (40-130) 06/27/25 11:05 Troponin T Baseline 10 ng/L (0-15) 06/27/25 11:05 Troponin T 120 Minute 7.83 ng/L (0-15) 06/27/25 13:17 Delta Troponin T -2.17 ABS# (0-10) L 06/27/25 13:17 Troponin T Hi Sens 6Hr 8.10 ng/L (0-15) 06/27/25 17:34 Troponin T Hi Sens 6Hr Delta -1.90 ng/L (0-12) L 06/27/25 17:34 NT-Pro-B Natriuret Pep 268 pg/mL (0-125) H 06/27/25 11:05 Total Protein 7.8 g/dL (6.6-8.7) 06/27/25 11:05 Albumin 3.9 g/dL (3.5-5.2) 06/27/25 11:05 Globulin 3.9 g/dL (1.3-4.6) 06/27/25 11:05 Procalcitonin 0.07 ng/mL (0-0.5) 06/27/25 11:05 Imaging Echo: Radiologist's impression: LV systolic function is mild to moderately reduced with EF of 40-45%. 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 Grade 1 diastolic dysfunction Trace mitral regurgitation Trace aortic regurgitation Mild tricuspid regurgitation Moderate pulmonary hypertension No comparison studies are available. Procedures Performed Selective coronary angiogram 06/28/[address] Dyer Vitals Last Vital Signs Temp 97.9 F 06/29/25 07:40 Pulse 71 06/29/25 09:28 Resp 18 06/29/25 09:28 BP 128/77 06/29/25 07:40 Pulse Ox 96 06/29/25 09:28 O2 Del Method Room Air 06/29/25 09:28 Discharge Plan Discharge Patient Disposition: Home Condition: Stable Prescriptions: New cetirizine 10 mg tablet 10 mg PO DAILY Qty: 60 0RF furosemide [Lasix] 20 mg tablet 20 mg PO DAILY Qty: 30 0RF atorvastatin [Lipitor] 40 mg tablet 40 mg PO DAILY Qty: 30 0RF aspirin 81 mg tablet 81 mg PO DAILY Qty: 100 0RF betamethasone, augmented 0.05 % ointment 1 applic topical BID Qty: 50 0RF metoprolol succinate [Toprol XL] 25 mg tablet extended release 24 hr 25 mg PO DAILY Qty: 30 0RF nitroglycerin 0.4 mg tablet, sublingual 0.4 mg sublingual Q5M PRN (Reason: chest pain) Qty: 20 0RF Rx Instructions: do not exceed 3 doses per episode nicotine 21-14-7 mg/24 hr patch, TD daily, sequential See Rx Instructions .ROUTE .COMPLEX Qty: 56 0RF Rx Instructions: apply 1-21 mg NICOTINE PATCH daily for 28 days; follow with 1-14 mg PATCH daily for 14 days, then 1-7mg PATCH daily for 14 days diphenhydramine HCl 25 mg tablet 25 mg PO Q6H PRN (Reason: itching) Qty: 60 0RF Continued ondansetron 8 mg tablet,disintegrating 8 mg PO Q8H PRN (Reason: nausea and vomiting) Qty: 3 0RF fluticasone propion-salmeterol 250-50 mcg/dose Blister With Device 1 inh INHALATION BID cholecalciferol (vitamin D3) [Vitamin D3] 25 mcg (1,000 unit) Capsule 25 mcg PO DAILY multivitamin Tablet 1 tab PO QAM gabapentin 300 mg Capsule 300 mg PO TID magnesium citrate Solution See Rx Instructions .ROUTE .COMPLEX PRN (Reason: Constipation) Rx Instructions: Drink contents of 1 bottle at 12pm and 1 bottle at 8pm daily as needed for constipation. montelukast 10 mg Tablet 10 mg PO QPM albuterol sulfate 90 mcg/actuation Hfa Aerosol Inhaler 2 puff INHALATION QID PRN (Reason: Shortness Of Breath) fluticasone propionate [Flonase] 50 mcg/actuation Mccoll,Suspension 1 spray INTRANASAL DAILY Rx Instructions: administer into each nostril Discontinued ibuprofen 800 mg tablet 800 mg PO Q8H Discharge Order = DC NOW: Discharge Order (Routine); Ordered 06/29/25 Ordered By: Erickson Burgess Referrals: Selene Bell NP [Nurse Practitioner, Cardiology] Referral Note: We have notified your physician's clinic of the need for a follow-up appointment to be scheduled. If you have not heard from them within the next 2 business days, please call them directly. Lore Castañeda FNP [Primary Care Provider, Nurse Practitioner] - 4-7 days Referral Note: Please call for an follow-up appointment within 4 to 7 days. Please check BMP due to diuretic Problems: Stable angina; Coronary artery disease Discharge Diet: Cardiac and Low Cholesterol Patient Instructions: Heart Catheterization (DC), COPD Stoplight, Chest Pain Stoplight, Opioid Safety, Post Angiogram Home Care Instructions, Patient Portal & Alex Instructions Activity Restrictions/Additional Instructions: Stop smoking Obtain medications as soon as possible and start them which will help manage your angina exertional chest pain Follow-up with your physician as directed above Use the cream twice a day avoiding eyes and genitals. It should be rubbed in and not excessive coating the skin wash your hands after applications to avoid getting it in your eyes and genitals or mouth Go to your primary care physician for skin biopsy as I think you have psoriasis Return for chest pain not relieved by 2 nitroglycerin sublingual over the course of 10 minutes Discharge Attestations Time Spent in Discharge Care*: greater than 30 min Time Spent in Smoking Cessation: 5 minutes and patient states he is going to make concerted effort to quit and will start nicotine patch through the [facility] Clinical Quality Measures [ No reported AMI, CVA or VTE this stay] Coding Level of Care Code 36151 Diagnoses Myocardial ischemia determined by electrocardiography I25.9 Dyspnea R06.09 Dyspnea type: dyspnea on exertion COPD (chronic obstructive pulmonary disease) J44.9 Rash and other nonspecific skin eruption R21 Time Spent (min) 45
[2025-06-29 14:03] VITALS: BP 130/91; PULSE 86; O2SAT 93
== END 2025-06-29 15:15 | disposition home or self-care (01) | DRG 287 ==
LOC: ER 12:26 → CSU 13:00
PROVIDERS: Internal Medicine; Physician Assistant; Admitting Provider Internal Medicine; Emergency Provider Family Medicine; PCP Nurse Practitioner; Visit Provider Internal Medicine
PROC: 4A023N7 Measurement of Cardiac Sampling and Pressure, Left Heart, Percutaneous Approach (ICD-10-PCS; principal; 2025-06-28 09:00)
DX: I25.118 Atherosclerotic heart disease of native coronary artery with other forms of angina pectoris (principal); I50.22 Chronic systolic (congestive) heart failure; I25.82 Chronic total occlusion of coronary artery; I25.5 Ischemic cardiomyopathy; I25.2 Old myocardial infarction; J44.9 Chronic obstructive pulmonary disease, unspecified; I27.20 Pulmonary hypertension, unspecified; F17.210 Nicotine dependence, cigarettes, uncomplicated; R21 Rash and other nonspecific skin eruption; Z79.82 Long term (current) use of aspirin; Z79.899 Other long term (current) drug therapy; Z71.6 Tobacco abuse counseling
CPT/HCPCS: 36415; 71045; 80053; 83880; 84145; 84484; 85025; 85049; 85610; 85730; 93005; 93306; 93454; 96365; 96366; 96375; 99152; 99153; 99285; C1769; C1887; C1894; J1644; J2250; J2270; J3010; J3490; J7030; J9999; Q0163; Q9967

== ENCOUNTER 2025-07-09 09:12 | Outpatient (CLI) | payer OTHER, SELFPAY ==
--- NOTE | 2025-07-09 09:27 | US_ITS ---
WS: [id number] RIGHT UPPER QUADRANT ULTRASOUND HISTORY: ELEVATED LFT'S COMPARISON: None available. Liver: 16.8 cm in length. Normal size liver and echogenicity. No bile duct dilatation or mass. Portal Vein: Normal hepatopetal flow with monophasic waveform. Gallbladder: Normally distended gallbladder with no stones or wall thickening. CBD: 0.3 cm Pancreas: Normal size and echogenicity. Right kidney: 10.7 cm in length. Normal size and echogenicity. No hydronephrosis or mass. Aorta and IVC: Unremarkable abdominal aorta and IVC. No ascites. US/US abdomen limited [id number] IMPRESSION: Normal right upper quadrant ultrasound.
--- NOTE | 2025-07-09 09:35 | CT_ITS ---
WS: [id number] LDCT LUNG CANCER SCREENING TECHNIQUE: Noncontrast CT of the chest with coronal and sagittal reformatted images. CLINICAL INFORMATION: SMOKER COMPARISON: None. DLP: 55.25 mGy.cm DIvol: Mean CTDIvol: 0.70 (mGy) All CT scans at [facility] use at least one of these dose optimization techniques: automated exposure control; mA and/or kV adjustment per patient size (includes targeted exams where dose is matched to clinical indication); or iterative reconstruction. FINDINGS: Numerous noncalcified scattered pulmonary nodules largest measuring 4 to 5 mm. Subsegmental atelectasis in the RIGHT greater than LEFT lower lobes. Aortic calcification. Normal caliber thoracic aorta. Coronary calcification. No mediastinal or hilar lymphadenopathy. Several prominent axillary lymph nodes although not pathologically enlarged. Small RIGHT adrenal adenoma. LEFT adrenal gland is normal. Tiny esophageal hernia. Moderate thoracic kyphosis. Chronic anterior wedging in the midthoracic spine. Endplate Schmorl's nodes. CT/CT lung screening [id number] IMPRESSION: LUNG-RADS: 2-Benign Appearance or Behavior FOLLOW UP: 12 Month: Continue annual screening with LDCT
== END 2025-07-09 09:13 | disposition home or self-care (01) ==
PROVIDERS: PCP Nurse Practitioner; Visit Provider Nurse Practitioner Family
DX: Z12.2 Encounter for screening for malignant neoplasm of respiratory organs (principal); F17.210 Nicotine dependence, cigarettes, uncomplicated; R91.8 Other nonspecific abnormal finding of lung field; R91.1 Solitary pulmonary nodule; J98.11 Atelectasis; M40.204 Unspecified kyphosis, thoracic region; M48.54XA Collapsed vertebra, not elsewhere classified, thoracic region, initial encounter for fracture; M51.44 Schmorl's nodes, thoracic region; R94.5 Abnormal results of liver function studies
CPT/HCPCS: 71271; 76705